=== PATIENT | male | born 1990 | race Caucasian/White ===

== ENCOUNTER 2021-03-13 18:25 | Inpatient (IN) | payer SELFPAY ==
--- NOTE | 2021-03-13 18:26 | ECG_ITS ---
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 Measurements Intervals Eustace Rate: 98 P: 67 NE: 144 QRS: 54 QRSD: 118 T: 59 QT: 370 QTc: 474 Interpretive Statements SINUS RHYTHM POSSIBLE LEFT ATRIAL ENLARGEMENT [-0.1mV P WAVE IN V1/V2] No previous ECG available for comparison Electronically Signed On 03-14-2021 9:21:47 CDT by Kerrie Singletary M.D. [id number]
[2021-03-13 18:40] VITALS: BP 153/115; PULSE 107; RESP 16; TEMP 36.6; O2SAT 99; BMI 24.3
[2021-03-13 19:29] LABS: Add Urine Microscopic? NO; Charge for UA Resulting for Rev
[2021-03-13 19:32] LABS: Bilirubin Urine Neg (Negative); Blood Urine Neg (Negative); Glucose Urine UA Norm (Normal); Ketones Urine Negative (Negative); Leukocyte Esterase Urine Negative (Negative); Nitrate Urine Negative (Negative); Protein Urine Neg (Negative); Urine Appearance Clear (CLEAR); Urine Color Yellow (Yellow); Urobilinogen Urine Norm (Negative); pH Urine 7 (5-7)
--- NOTE | 2021-03-13 19:34 | ED_ITS ---
HPI - Alcohol General: Chief Complaint: Alcohol Stated Complaint: ETOH Time Seen by Provider: 03/13/21 18:26 History of Present Illness: HPI narrative: The patient is a 30-year-old male alcoholic also has hepatitis C. He says he wants to be admitted for help with his alcoholism. He says he is chronically depressed and feels like he would be better off if he did not wake up. He says he is behaviors have stressed out his family and he is a bad son, bad has been and he is sick and tired of it. He wants help. He denies direct suicidal ideations but mentions multiple times that he wishes he would . MD complaint: alcohol intoxication Chronic alcohol use: Yes Recent trauma: No Associated symptoms: Reports no associated symptoms and depression; Deny abdominal pain Review of Systems General: Reports: 10 or more systems reviewed and unremarkable except in HPI and below Const: Denies: fatigue Eyes: Denies: change in vision, blurry vision or eye redness ENMT: Denies: throat pain, swelling of lips/tongue, ear or mastoid pain or nasal congestion Card: Denies: chest pain, palpitations, irregular heart rhythm, edema, dyspnea on exertion or orthopnea Resp: Denies: dyspnea, productive cough or non-productive cough GI: Denies: abdominal pain, diarrhea or GI cramping : Denies: flank pain, urinary frequency or urinary urgency Musc: Denies: neck pain, back pain, extremity pain, joint pain, joint redness, limited range of motion or muscle weakness Skin/Breast: Denies: rash, pruritus, erythema, skin pain or skin tenderness Neuro: Denies: headache(s), numbness in extremities, weakness in extremities, sensory changes, difficulty walking, dizziness, confusion or Slurred speech present Psych: Reports: depression and hopelessness; Denies: anxiety Endo: Denies: polyuria All/Imm: Denies: urticaria, throat swelling or tongue swelling PFSH ED PFSH: Social History (Updated 03/13/21 @ 18:47 by Yeison Asif RN) Smoking and tobacco status: heavy tobacco smoker cigarettes Packs smoked per day: 2 Alcohol intake: current Alcohol intake frequency: 3 or more drinks per day Alcohol type: hard liquor Substance/Drug Use: current Substance/Drug use frequency: daily Substance/Drug use type: Marijuana Physical Exam Const: COMMON NORMALS: no acute distress, average body habitus, patient oriented x3, no limitations, healthy appearing, alert and well nourished GENERAL APPEARANCE: cooperative, comfortable and disheveled ORIENTATION/CONSCIOUSNESS: Yes awake, Yes oriented to person, Yes oriented to place and Yes oriented to time OTHER: intoxicated HENMT: COMMON NORMALS: normocephalic, external ears normal and Normal external nose present HEAD & SCALP: normal to inspection and normocephalic NOSE: Normal external nose present EXTERNAL EAR: Yes external ears normal MOUTH: Normal oral and palatal mucosa present THROAT: posterior oropharynx normal Eye: COMMON NORMALS: Equal, round and reactive pupils present and EOMs intact bilaterally GENERAL EYE: appearance normal, both eyes and all related structures PUPIL: Yes Equal, round and reactive pupils present Neck/C-Spine: COMMON NORMALS: full ROM, no lymphadenopathy, no meningeal signs and no JVD GENERAL: Yes normal visual inspection Lymph: LYMPHATIC: no lymphadenopathy noted Chest: COMMONS NORMALS: normal inspection of the chest and normal palpation of entire chest wall Resp: COMMON NORMALS: normal respiratory effort, No retractions, No use of accessory muscles, clear to auscultation bilaterally and percussion normal EFFORT & INSPECTION: Yes able to speak in complete sentences AUSCULTATION: clear to auscultation bilaterally PERCUSSION: percussion normal Cardio: COMMON NORMALS: no JVD, regular rate, regular rhythm, S1 normal heart sound present, S2 normal heart sound present and Peripheral pulses 2+ throughout RATE: regular rate RHYTHM: regular rhythm HEART SOUNDS: S1 normal heart sound present and S2 normal heart sound present PERIPHERAL PULSES: Peripheral pulses 2+ throughout GI: COMMON NORMALS: Normal to inspection, nondistended, normoactive bowel sounds present, Soft to palpation, non-tender and no masses INSPECTION: Yes normal to inspection PALPATION: Yes Soft to palpation : COMMON NORMALS: Yes no CVA tenderness BLADDER/KIDNEY EXAM: Yes no CVA tenderness Back/Pelvis: COMMON NORMALS: no CVA tenderness, thoracic and lumbar spine normal to inspection, no thoracic nor lumbar tenderness and thoraco-lumbar ROM normal Extremity: COMMON NORMALS: normal to inspection, full ROM, capillary refill normal, no joint enlargement and no pedal edema GENERAL: Yes normal exam except as noted Neuro: COMMON NORMALS: patient oriented x3, CN's II-XII intact bilaterally, moves all extremities, no focal motor deficits, no sensory deficits noted and gait normal SENSORIUM/ORIENTATION: Yes alert, Yes oriented to person, Yes oriented to place and Yes oriented to time MENINGEAL SIGNS: Yes no meningeal signs Psych: COMMON NORMALS: cooperative, normal affect and speech normal APPEARANCE: Yes unkempt ATTITUDE: Yes calm SPEECH: Yes normal speech MOOD & AFFECT: Yes depressed mood Skin: COMMON NORMALS: no rashes or lesions noted GENERAL SKIN EXAM: no rashes or lesions noted Course Vital Signs: Vital signs: Vital Signs Temperature 98.7 F 03/13/21 22:45 Pulse Rate 108 H 03/13/21 22:45 Respiratory Rate 16 03/13/21 18:40 Blood Pressure 161/106 03/13/21 22:45 Pulse Oximetry 93 03/13/21 22:45 MDM - Alcohol MDM Narrative: Medical decision making narrative: I have written 96-hour hold paperwork as the patient expresses passive suicidal ideations and he is intoxicated. He says multiple times he wishes he would and not wake up and if he were drowning in a bathtub he would not save himself. He is also highly intoxicated. Discussed with Dr. Unger who accepts pending his alcohol less than 200. Lab Data: Labs: Lab Results 03/13/21 03/13/21 03/13/21 Range/Units 19:20 19:20 19:20 WBC 6.0 (4.0-10.0) 10^3/ uL RBC 4.85 (4.1-5.3) 10^6/u L Hgb 16.6 (11.7-16.6) g/dL Hct 47.0 (42.0-52.0) % MCV 96.9 H (80-94) fL MCH 34.2 H (28.0-34.0) pg MCHC 35.3 (30.0-36.0) g/dL RDW 12.9 (12.1-15.1) % Plt Count 225 (130-400) 10^3/c mm MPV 9.5 (7.4-10.4) fL Neut % (Auto) 60.7 % Lymph % (Auto) 24.5 % Robeson % (Auto) 12.0 % Eos % (Auto) 1.3 % Baso % (Auto) 1.2 % Neut # (Auto) 3.63 (1.8-7.7) 10^3/u L Lymph # (Auto) 1.5 (0.8-4.8) 10^3/u L Robeson # (Auto) 0.7 (0.2-0.9) 10^3/u L Eos # (Auto) 0.1 (0.0-0.8) 10^3/u L Baso # (Auto) 0.1 (0.0-0.1) 10^3/u L Nucleated RBC % (a uto) 0 % Nucleated RBCs # 0.0 /100WBC Sodium 139 (136-145) mmol/L Potassium 3.2 L (3.5-5.1) mmol/L Chloride 99 (98-107) mmol/L Carbon Dioxide 26 (22-29) mmol/L Anion Gap 17.2 (5-19) BUN 5 L (6-20) mg/dL Creatinine 0.7 (0.7-1.2) mg/dL GFR Calculation 130.7 H (90-130) mL/min Glucose 123 H (65-115) mg/dL Calculated Osmolal ity 287 (285-295) mOsm/k g Calcium 8.2 L (8.5-10.5) mg/dL Total Bilirubin 0.3 (0.15-1.2) mg/dL AST 263 H (0-40) U/L ALT 306 H (0-41) U/L Alkaline Phosphata se 106 (40-130) IU/L Total Protein 7.4 (6.6-8.7) g/dL Albumin 4.6 (3.5-5.2) g/dL Globulin 2.8 (1.3-4.6) g/dL TSH 2.71 (0.27-4.20) uIU/ mL Urine Color Yellow (Yellow) Urine Appearance Clear (CLEAR) Urine pH 7 (5-7) Ur Specific Gravit y 1.000 L (1.005-1.030) Urine Protein Neg (Negative) Urine Glucose (UA) Norm (Normal) Urine Ketones Negative (Negative) Urine Blood Neg (Negative) Urine Nitrate Negative (Negative) Urine Bilirubin Neg (Negative) Urine Urobilinogen Norm (Negative) mg/dL Ur Leukocyte Sherri ase Negative (Negative) Salicylates < 0.3 L (3-10) mg/dL Urine Opiates Scre en (Negative) ng/mL Acetaminophen < 5.0 L (10-30) ug/mL Ur Barbiturates Sc reen (Negative) ng/mL Ur Phencyclidine S crn (Negative) ng/mL Ur Amphetamines Sc reen (Negative) ng/mL U Benzodiazepines Scrn (Negative) ng/mL Urine Cocaine Scre en (Negative) ng/mL U Marijuana (THC) Screen (Negative) ng/mL Ethyl Alcohol 387 H* (0-10) mg/dL 03/13/21 03/13/21 Range/Units 19:20 23:34 WBC (4.0-10.0) 10^3/ uL RBC (4.1-5.3) 10^6/u L Hgb (11.7-16.6) g/dL Hct (42.0-52.0) % MCV (80-94) fL MCH (28.0-34.0) pg MCHC (30.0-36.0) g/dL RDW (12.1-15.1) % Plt Count (130-400) 10^3/c mm MPV (7.4-10.4) fL Neut % (Auto) % Lymph % (Auto) % Robeson % (Auto) % Eos % (Auto) % Baso % (Auto) % Neut # (Auto) (1.8-7.7) 10^3/u L Lymph # (Auto) (0.8-4.8) 10^3/u L Robeson # (Auto) (0.2-0.9) 10^3/u L Eos # (Auto) (0.0-0.8) 10^3/u L Baso # (Auto) (0.0-0.1) 10^3/u L Nucleated RBC % (a uto) % Nucleated RBCs # /100WBC Sodium (136-145) mmol/L Potassium (3.5-5.1) mmol/L Chloride (98-107) mmol/L Carbon Dioxide (22-29) mmol/L Anion Gap (5-19) BUN (6-20) mg/dL Creatinine (0.7-1.2) mg/dL GFR Calculation (90-130) mL/min Glucose (65-115) mg/dL Calculated Osmolal ity (285-295) mOsm/k g Calcium (8.5-10.5) mg/dL Total Bilirubin (0.15-1.2) mg/dL AST (0-40) U/L ALT (0-41) U/L Alkaline Phosphata se (40-130) IU/L Total Protein (6.6-8.7) g/dL Albumin (3.5-5.2) g/dL Globulin (1.3-4.6) g/dL TSH (0.27-4.20) uIU/ mL Urine Color (Yellow) Urine Appearance (CLEAR) Urine pH (5-7) Ur Specific Gravit y (1.005-1.030) Urine Protein (Negative) Urine Glucose (UA) (Normal) Urine Ketones (Negative) Urine Blood (Negative) Urine Nitrate (Negative) Urine Bilirubin (Negative) Urine Urobilinogen (Negative) mg/dL Ur Leukocyte Sherri ase (Negative) Salicylates (3-10) mg/dL Urine Opiates Scre en Negative (Negative) ng/mL Acetaminophen (10-30) ug/mL Ur Barbiturates Sc reen Negative (Negative) ng/mL Ur Phencyclidine S crn Negative (Negative) ng/mL Ur Amphetamines Sc reen Negative (Negative) ng/mL U Benzodiazepines Scrn Negative (Negative) ng/mL Urine Cocaine Scre en Negative (Negative) ng/mL U Marijuana (THC) Screen Negative (Negative) ng/mL Ethyl Alcohol 268 H (0-10) mg/dL Discharge Plan Discharge Patient Disposition: Admitted As Inpatient Clinical Impression: Major depression, Alcoholic intoxication Condition: Stable Coding Level of Care Code ED [employer] Space Salesperson for Edvin Fwd Exam Comprehensive
[2021-03-13 19:41] LABS: Basophils # 0.1 10^3/uL (0.0-0.1); Basophils % 1.2 %; Eosinophils # 0.1 10^3/uL (0.0-0.8); Eosinophils % 1.3 %; Hemoglobin 16.6 g/dL (11.7-16.6); Lymphocytes # 1.5 10^3/uL (0.8-4.8); Lymphocytes % 24.5 %; Mean Corpuscular HGB Conc 35.3 g/dL (30.0-36.0); Mean Corpuscular Hemoglobin 34.2 pg (28.0-34.0); Mean Corpuscular Volume 96.9 fL (80-94); Mean Platelet Volume 9.5 fL (7.4-10.4); Monocytes # 0.7 10^3/uL (0.2-0.9); Neutrophils # 3.63 10^3/uL (1.8-7.7); Neutrophils % 60.7 %; Nucleated Red Blood Cells % 0 %; Platelet Count 225 10^3/cmm (130-400); Red Blood Count 4.85 10^6/uL (4.1-5.3); Red Cell Distribution Width 12.9 % (12.1-15.1)
[2021-03-13 19:45] LABS: Amphetamines Screen Urine Negative (Negative); Barbiturates Screen Urine Negative (Negative); Benzodiazepines Screen Urine Negative (Negative); Cocaine Screen Urine Negative (Negative); Opiate Screen Urine Negative (Negative); PCP Screen Urine Negative (Negative); THC Screen Urine Negative (Negative)
[2021-03-13] MEDS: nicotine 21 mg Patch 1 PATCH TRANSDERMA (19:58)
[2021-03-13 20:00] LABS: Acetaminophen < 5.0 ug/mL (10-30); Alanine Aminotransferase 306 U/L (0-41); Albumin Level 4.6 g/dL (3.5-5.2); Alkaline Phosphatase 106 IU/L (40-130); Anion Gap 17.2 (5-19); Aspartate Amino Transferase 263 U/L (0-40); Blood Urea Nitrogen 5 mg/dL (6-20); Calcium 8.2 mg/dL (8.5-10.5); Carbon Dioxide 26 mmol/L (22-29); Chloride 99 mmol/L (98-107); Globulin 2.8 g/dL (1.3-4.6); Glomerular Filtration Rate 130.7 mL/min (90-130); Glucose 123 mg/dL (65-115); Osmolality Calculated 287 mOsm/kg (285-295); Potassium 3.2 mmol/L (3.5-5.1); Salicylate < 0.3 mg/dL (3-10); Sodium 139 mmol/L (136-145); Thyroid Stimulating Hormone 2.71 uIU/mL (0.27-4.20); Total Bilirubin 0.3 mg/dL (0.15-1.2); Total Protein 7.4 g/dL (6.6-8.7)
[2021-03-13 20:01] LABS: Alcohol Level 387 mg/dL (0-10)
[2021-03-13 22:45] VITALS: BP 161/106; PULSE 108; TEMP 37.1; O2SAT 93
[2021-03-13] MEDS: nicotine 2 mg Gum BUCCAL (23:46)
[2021-03-13 23:53] LABS: Alcohol Level 268 mg/dL (0-10)
[2021-03-13] MEDS: potassium chloride ER 20 mEq Tablet 40 MEQ PO (23:54)
[2021-03-14] VITALS (8 sets, daily range): BP systolic 136–163; BP diastolic 94–114; PULSE 93–105; RESP 14–18; TEMP 36.8–37.1; O2SAT 95–98
[2021-03-14 02:55] LABS: Alcohol Level 186 mg/dL (0-10)
[2021-03-14] MEDS: multivitamin therapeutic Tablet 1 TAB PO (08:56)
[2021-03-14] MEDS: thiamine 100 mg Tablet PO (08:56)
[2021-03-14] MEDS: ondansetron 4 MG Tablet PO (08:56)
[2021-03-14] MEDS: folic acid 1 mg Tablet PO (08:56)
--- NOTE | 2021-03-14 09:18 | PC.NURSE ---
Addendum entered by Isabelle Gary RN 03/14/21 10:12: PRN FOLLOW UP PT RESTING IN BED AT THIS TIME. NO FURTHER C/O NAUSEA. Addendum entered by Isabelle Gary RN 03/14/21 09:21: LATE ENTRY FOR 0856 Original Note: PRN ZOFRAN PRN ZOFRAN 4 MG GIVEN PO FOR PT C/O NAUSEA. PT REPORTS NO VOMITING AT THIS TIME. WILL CONTINUE TO MONITOR FOR MEDICATION EFFECTIVENESS.
[2021-03-14] MEDS: nicotine 21 mg Patch 1 PATCH TRANSDERMA (12:30)
--- NOTE | 2021-03-14 12:34 | P.HP_ITS ---
Providers/Chief Complaint Admitting Physician: Maribel Unger DO Chief Complaint: PSYCH EVAL HPI NPU History of Present Illness Cecil Nelson is a 30 year old male with longstanding history of alcohol depende nce previously presenting to the emergency department a month ago but leaving AGAINST MEDICAL ADVICE under similar circumstances with alcohol intoxication requesting medically managed withdrawal currently presenting with passive suicidal ideation in the context of alcohol intoxication. Patient states that he is frustrated with his ongoing alcohol use and reports using around a pint to a couple pints of liquor daily presenting to the emergency department with a blood alcohol level of 286 mg/dL. Patient states that he has had worsening thoughts about not wanting to live secondary to his alcohol use but denies any past history of depression or suicide attempt or self-harm behavior. Patient currently reporting alcohol withdrawal symptoms to include nausea, stomach cramping, sweats, difficulty sleeping. Patient reports having problems with craving alcohol and states that he had detoxed himself a couple weeks ago and was sober for a few days but began to drink again. Patient states that his alcohol use is cause significant impairment in his ability to work. Review of Systems General: Reports: 10 or more systems reviewed and unremarkable except in HPI and below Meds NPU Home Medications Medication Instructions Recorded Confirmed Last Taken Type No Known Home Medications 03/13/21 03/13/21 Unknown History Allergies Allergy/AdvReac Type Severity Reaction Status Date / Time No Known Allergies Allergy Verified 01/31/21 14:01 PFS NPU PFSH: Social History Smoking and tobacco status: heavy tobacco smoker cigarettes Packs smoked per day: 2 Alcohol intake: current Alcohol intake frequency: 3 or more drinks per day Alcohol type: hard liquor Substance/Drug Use: current Substance/Drug use frequency: daily Substance/Drug use type: Marijuana Other Psychiatric History: Other Psychiatric History: Denies any past psychiatric history Denies any history of psychiatric hospitalization Denies any history of suicide attempt or self-harm behavior Mental Status Exam MSE Comments: Disheveled, unshaven, tired appearing, shaking, fair eye contact Psychomotor activity is restless, no agitation Speech is low volume, normal rate, clear articulation, not pressured I feel bad, congruent affect, not labile Alert, oriented to person, place, time, situation Memory and concentration appear to be intact per interview Intellectual functioning appears to be average based on vocabulary, interview Thought process, linear but brief, no flight of ideas Thought content, no delusions, no hallucinations, no suicidal or homicidal ideation Insight and judgment appear to be fair Vitals/I&O/Wt Last Vital Signs Temp 98.7 F 03/14/21 06:00 Pulse 105 H 03/14/21 06:00 Resp 18 03/14/21 06:00 BP 151/107 03/14/21 06:00 Pulse Ox 95 03/14/21 06:00 Weight last 48 hrs Weight 77.111 kg Data NPU : 03/13/21 19:20 03/13/21 19:20 A&P Assessment and plan (1) Alcohol dependence with withdrawal: Status: Acute Qualifiers: Complication of substance-induced condition: uncomplicated Qualified Code(s): F10.230 - Alcohol dependence with withdrawal, uncomplicated (2) Depressive disorder: Status: Acute Additional A&P Information 30-year-old male with no past psychiatric history with longstanding history of alcohol dependence reports worsening depressive symptoms and passive suicidal ideation in the context of inability to stop drinking, requesting medically managed with withdrawal as well as assistance with coordinating for post discharge substance rehabilitation. INVOLUNTARY ADMIT to inpatient psychiatry [facility] protocol Discussed recommendation to abstain from the use of alcohol and substances Coordinate with social media marketing analyst for post discharge substance counseling/treatment Involuntary Hold Information 96 Hour Hold: 96 Hour Involuntary Admission: Yes 96 Hour Hold Ending Date: 02/15/21 96 Hour Hold Ending Time: 20:14 Attestations NPU Medical Necessity Statement*: Psychiatric hospitalization indicated for medically managed withdrawal, coordination for safe discharge Anticipate hospital stay to exceed 2 midnights Time Spent in Patient Care: Greater than 35 minutes (>than 50% of time spent in counselling and/or direct pt care on unit) . Coding Level of Care Code Acute Fine Unhairer for Edvin Garcia Diagnoses Alcohol dependence with withdrawal F10.230 Complication of substance-induced condition: uncomplicated Depressive disorder F32.9
--- NOTE | 2021-03-14 20:00 | PC.NURSE ---
ciwa 7/BP CONCERN BP IS 159/114, WITHDRAWL SYMPTOMS ARE BEGINNING AND CIWA IS A 7 AT THIS TIME, NOTIFIED PHYSICIAN OF PT CONDITION.
--- NOTE | 2021-03-14 20:43 | PC.NURSE ---
PM Assessment CIWA 7, BP increased to 159/114, HR 104, Pt is mildly diaphoretic, anxious, pacing, mildly sensitive to sound/light, Denies SI/HI, Denies AH/VH, confirms constant state of depression, headache Pain rated 4 on 1-10 scale, med nurse notified. Contacted Physician, orders for clonidine 0.1mg PO once one received, and additional 2mg PO Ativan for s/s of withdrawl received. Orders placed, med nurse notified of new meds to administer. Will continue to observe.
[2021-03-14] MEDS: cloNIDine 0.1 mg Tablet PO (21:02)
[2021-03-14] MEDS: LORazepam 2 mg Tablet PO (21:02)
--- NOTE | 2021-03-14 21:45 | PC.NURSE ---
CIWA 2 Ciwa score decreased. Symptoms of alcohol withdraw is improved. BP is 136/94, RR 17, MD 94. No pain, no tremor noted, pt resting in his bed reading a book, calm, cooperative. Will continue to observe
--- NOTE | 2021-03-15 01:11 | PC.NURSE ---
AT 2101, PT GIVEN CLONODINE 1MG PO FOR BP OF 159/114 AND ATIVAN FOR ALC WITHDRAWEL S/S. RECHECK AT 2144...136/94.
[2021-03-15 06:00] VITALS: BP 154/92; PULSE 93; RESP 18; TEMP 37; O2SAT 95
[2021-03-15 08:38] VITALS: BP 154/92
[2021-03-15] MEDS: multivitamin therapeutic Tablet 1 TAB PO (08:38)
[2021-03-15] MEDS: cloNIDine 0.1 mg Tablet PO ×3 (08:38→20:19)
[2021-03-15] MEDS: thiamine 100 mg Tablet PO (08:38)
[2021-03-15] MEDS: folic acid 1 mg Tablet PO (08:39)
--- NOTE | 2021-03-15 13:33 | PM.NPN ---
Subjective NPU Subjective: Interval history: Continues to report feeling fatigued but denies any interval withdrawal symptoms Reports occasional mood symptoms related to ongoing stressors, denies any interval suicidal ideation Reports improving appetite and sleep Mental Status Exam MSE Comments: Sitting up in bed, appropriately groomed and dressed, calm, cooperative, interactive, good eye contact Psychomotor activity is neither increased or decreased, no agitation Speech is normal volume, normal rate, clear articulation, not pressured I feel better, congruent affect, not labile Alert, oriented to person, place, time, situation Memory and concentration appear to be intact per interview Intellectual functioning appears to be average based on vocabulary, interview Thought process, linear, no flight of ideas Thought content, no delusions, no hallucinations, no suicidal or homicidal ideation Insight and judgment appear to be fair Vitals/I&O/Wt Last Vital Signs Temp 98.6 F 03/15/21 06:00 Pulse 93 03/15/21 06:00 Resp 18 03/15/21 06:00 BP 154/92 03/15/21 08:38 Pulse Ox 95 03/15/21 06:00 Weight last 48 hrs Weight 77.111 kg Data NPU : 03/13/21 19:20 03/13/21 19:20 A&P Assessment and plan (1) Alcohol dependence with withdrawal: Status: Acute Qualifiers: Complication of substance-induced condition: uncomplicated Qualified Code(s): F10.230 - Alcohol dependence with withdrawal, uncomplicated (2) Depressive disorder: Status: Acute Additional A&P Information Reports improvement in withdrawal symptoms, continues to report some depressive symptoms related ongoing life stress, communicates interest in starting medication to target alcohol craving START naltrexone 50 mg daily START citalopram 10 mg daily targeting mood symptoms Involuntary Hold Information 96 Hour Hold: 96 Hour Involuntary Admission: Yes 96 Hour Hold Ending Date: 02/15/21 96 Hour Hold Ending Time: 20:14 Attestations NPU Medical Necessity Statement*: Continues to require psychiatric hospitalization for medical management of withdrawal, coordination for safe discharge Coding Level of Care Code Acute Certified Pediatric Nurse Practitioner for Edvin Garcia Diagnoses Alcohol dependence with withdrawal F10.230 Complication of substance-induced condition: uncomplicated Depressive disorder F32.9
[2021-03-15 14:00] VITALS: BP 137/105; PULSE 104; RESP 20; TEMP 36.6; O2SAT 97
[2021-03-15] MEDS: nicotine 21 mg Patch 1 PATCH TRANSDERMA (14:05)
[2021-03-15] MEDS: naltrexone hcl 50 mg Tablet PO (14:05)
[2021-03-15] MEDS: citalopram 20 mg Tablet 10 MG PO (14:05)
--- NOTE | 2021-03-15 18:47 | PC.RESP ---
Smoking Cessation information sent to patient.
[2021-03-15 20:19] VITALS: BP 142/99
[2021-03-15] MEDS: blistex lip oint 7 gm Tube 1 APPLIC TOPICAL (20:50)
[2021-03-15] MEDS: acetaminophen 325 mg Tablet 650 MG PO (21:02)
[2021-03-15] MEDS: LORazepam 2 mg Tablet PO (21:02)
[2021-03-15] MEDS: hyDROXYzine 25 mg Capsule 50 MG PO (21:02)
[2021-03-15 21:27] VITALS: BP 142/99; PULSE 104; RESP 16; TEMP 36.7
--- NOTE | 2021-03-15 22:57 | PC.NURSE ---
In bed sleeping.
[2021-03-16 06:00] VITALS: BP 142/98; PULSE 92; RESP 16; TEMP 36.8; O2SAT 96
[2021-03-16] MEDS: multivitamin therapeutic Tablet 1 TAB PO (08:16)
[2021-03-16] MEDS: citalopram 20 mg Tablet 10 MG PO (08:16)
[2021-03-16] MEDS: folic acid 1 mg Tablet PO (08:17)
[2021-03-16] MEDS: naltrexone hcl 50 mg Tablet PO (08:17)
[2021-03-16] MEDS: thiamine 100 mg Tablet PO (08:17)
[2021-03-16 08:18] VITALS: BP 142/98
[2021-03-16] MEDS: cloNIDine 0.1 mg Tablet PO (08:18)
[2021-03-16 09:32] VITALS: BP 142/98
--- NOTE | 2021-03-16 09:39 | P.DS_ITS ---
Diagnoses at Discharge Discharge Diagnosis (1) Alcohol dependence with withdrawal: Status: Acute Qualifiers: Complication of substance-induced condition: uncomplicated Qualified Code(s): F10.230 - Alcohol dependence with withdrawal, uncomplicated (2) Depressive disorder: Status: Acute Reason for Visit Reason for Visit: [facility] Hospital Course Hospital Course 30 year old male with longstanding history of alcohol dependence previously presenting to the emergency department a month ago but leaving AGAINST MEDICAL ADVICE under similar circumstances with alcohol intoxication requesting medically managed withdrawal currently presenting with passive suicidal ideation in the context of alcohol intoxication. Patient was started on CIWA protocol at the time of admission and tolerated withdrawal well with eventual improved sleep and appetite. Patient denied any subsequent suicidal ideation throughout his hospital stay and communicated his interest in outpatient substance rehabilitation at the time of discharge. Patient was started on citalopram 10 mg daily targeting reported depressive symptoms although patient will continue to need monitoring outpatient to further evaluate underlying mood symptoms versus alcohol induced mood symptoms. Patient was also started on naltrexone 50 mg daily targeting cravings which the patient tolerated well with no reports of any medication side effects. Patient was not suicidal at the time of discharge and did not appear to pose an imminent threat of harm to self or others. Low to moderate risk of harm to self given no current suicidal ideation and no report of any psychiatric symptoms although patient's risk may be elevated if he relapses and continues to drink alcohol or is noncompliant with post discharge substance counseling/treatment leading to unexpected, impulsive behavior. Risk mitigation included psychiatric hospitalization for medically managed withdrawal, medication stabilization, recommendation to abstain from the use of alcohol and substances as well as the need for compliance with his medication, medication management and substance counseling/treatment. Patient was able to communicate his understanding of the need to abstain from use of alcohol and substances as well as the need for compliance with his medication, medication management and substance counseling/treatment in order to further mitigate his risk of harm to self and others. Involuntary Hold Information 96 Hour Hold: 96 Hour Involuntary Admission: Yes 96 Hour Hold Ending Date: 02/15/21 96 Hour Hold Ending Time: 20:14 Mental Status Exam MSE Comments: Appropriately appropriately groomed and dressed, sitting up on his bed, calm, cooperative, interactive, good eye contact Psychomotor activity is neither increased or decreased, no agitation Speech is normal volume, normal rate, clear articulation, not pressured I feel good, congruent affect, not labile Alert, oriented to person, place, time, situation Memory and concentration appear to be intact per interview Thought process, linear, no flight of ideas Thought content, no delusions, no hallucinations, no suicidal or homicidal ideation Insight and judgment appear to be fair Discharge Data Vitals: Last Vital Signs Temp 98.2 F 03/16/21 06:00 Pulse 92 03/16/21 06:00 Resp 16 03/16/21 06:00 BP 142/98 03/16/21 09:32 Pulse Ox 96 03/16/21 06:00 Discharge Plan Discharge Patient Disposition: Home Condition: Stable Prescriptions: New naltrexone 50 mg Tablet 50 mg PO DAILY Qty: 30 RF: 0 citalopram 20 mg Tablet 10 mg PO DAILY Qty: 30 RF: 0 Vitamin B-1 (mononitrate) 100 mg Tablet 100 mg PO DAILY Qty: 30 RF: 0 Thera 400 mcg Tablet 1 tab PO DAILY Qty: 30 RF: 0 Discharge Orders: Discharge Order (Routine); Ordered 03/16/21 Ordered By: Maribel Unger Referrals: [facility] [Outside] (Hours: Walk-in between 7:30am and 3pm. No appointment needed and just walk in and say I need to do an assessment for services. The commercial front load operator will set you up with an retirement plan specialist, sometimes right away and usually same day. ) [facility] [Outside] (Hours: 8AM to 5PM SUDS application was faxed to [facility]. Call them if you don't get a call within 48 hours. ) Discharge Diet: Regular Discharge Activity: Resume usual activity Patient Instructions: Thiamine (Vitamin B-1) (By mouth), Naltrexone (By mouth), Citalopram (By mouth), Anxiety (DC), Opioid Safety Discharge Attestations NPU Time Spent in Discharge Care*: greater than 30 min Status at Discharge: Cognitive status at discharge: cognitively intact , Behavioral status at discharge: cooperative , Functional status at discharge: independent ambulation Overall status at discharge: patient is back to baseline Coding Level of Care Code Acute Chg FW DC note Diagnoses Alcohol dependence with withdrawal F10.230 Complication of substance-induced condition: uncomplicated Depressive disorder F32.9
== END 2021-03-16 10:05 | disposition home or self-care (01) | DRG 897 ==
LOC: ER 03-14 00:16 → NP 03-14 00:32
PROVIDERS: Emergency Medicine; Admitting Provider Psychiatry & Neurology Psychiatry; Emergency Provider Family Medicine; Visit Provider Psychiatry & Neurology Psychiatry
DX: F10.229 Alcohol dependence with intoxication, unspecified (principal); R45.851 Suicidal ideations; F10.239 Alcohol dependence with withdrawal, unspecified; Y90.8 Blood alcohol level of 240 mg/100 ml or more; F32.9 Major depressive disorder, single episode, unspecified
CPT/HCPCS: 36415; 80053; 80306; 80307; 81003; 84443; 85025; 93005; 99285; Q0162

== ENCOUNTER 2021-04-10 17:00 | Emergency (ER) | payer SELFPAY ==
[2021-04-10 17:05] VITALS: BP 116/76; PULSE 136; RESP 18; TEMP 37.1; O2SAT 97; BMI 25.8
--- NOTE | 2021-04-10 17:26 | PC.PHAR ---
PT STATES HE TAKES CARE OF HIS OWN MEDICATIONS-PT HAD RX WRITTEN ON 03/16/21 FOR NALTREXONE 50MG DAILY THERA 1 TAB DAILY AND VITAMIN B-1 100MG DAILY PT STATES HE NEVER GOT ANY OF THOSE MEDICATIONS-EXT MED HISTORY SHOWS CELEXA 10MG DAILY FILLED 03/17/21 30D/S PT STATES HE HAS BEEN OUT OF THIS MEDICATION FOR A WEEK
[2021-04-10] MEDS: sodium chloride 0.9% 1,000 ML 999 ML IV ×3 (17:27→19:37)
[2021-04-10] MEDS: ondansetron 2 mg/ML SDV 2 mL 4 MG IVP (17:27)
[2021-04-10 17:39] VITALS: BP 119/76; PULSE 134; RESP 31; O2SAT 96
[2021-04-10 17:41] LABS: Add Urine Microscopic? YES; Bilirubin Urine 2+ (Negative); Blood Urine 2+ (Negative); Glucose Urine UA Norm (Normal); Ketones Urine Negative (Negative); Leukocyte Esterase Urine Negative (Negative); Nitrate Urine Negative (Negative); Protein Urine 1+ (Negative); Specific Gravity, Urine 1.025 (1.005-1.030); Urine Appearance SL Hazy (CLEAR); Urine Color Dark Yellow (Yellow); Urobilinogen Urine 4 mg/dL (Negative); pH Urine 5 (5-7)
[2021-04-10 17:41] LABS: Basophils # 0.1 10^3/uL (0.0-0.1); Basophils % 0.9 %; Eosinophils # 0.2 10^3/uL (0.0-0.8); Eosinophils % 1.7 %; Hematocrit 45.6 % (42.0-52.0); Hemoglobin 15.8 g/dL (11.7-16.6); Lymphocytes # 0.2 10^3/uL (0.8-4.8); Lymphocytes % 2.1 %; Mean Corpuscular HGB Conc 34.6 g/dL (30.0-36.0); Mean Corpuscular Hemoglobin 33.8 pg (28.0-34.0); Mean Corpuscular Volume 97.6 fL (80-94); Mean Platelet Volume 11.5 fL (7.4-10.4); Monocytes # 1.1 10^3/uL (0.2-0.9); Monocytes % 10.5 %; Neutrophils % 84.4 %; Nucleated Red Blood Cells % 0 %; Platelet Count 46 10^3/cmm (130-400); Red Blood Count 4.67 10^6/uL (4.1-5.3); Red Cell Distribution Width 13.2 % (12.1-15.1); White Blood Count 10.7 10^3/uL (4.0-10.0)
--- NOTE | 2021-04-10 17:52 | W.ED.NAVMDI ---
Documented by User: Mehdi Wilson DO 04/11/21 06:01 HPI - Nausea/Vomiting/Diarrhea General: Chief complaint: Nausea/Vomiting/Diarrhea Stated complaint: N/V, cant hold anything down for 4 days Time Seen by Provider: 04/10/21 17:10 History of Present Illness: HPI Narrative: 30-year-old male presents emergency room with nausea vomiting and diarrhea severe abdominal pain and cramping. Has not been able to keep anything down for the last 4 days. Patient admits to drinking alcohol on a regular basis a pint or more of rum per day frequently more than a pint. He is awake and alert and oriented he is tachycardic with severe abdominal discomfort he did have a little bit of blood-streaked emesis this morning is the first time he has ever had that. MD elicited complaint: nausea and vomiting Pertinent past history: alcohol abuse Onset (ago): day(s) (4) Description of vomiting: watery and bilious Associated nausea: Yes Associated abdominal pain: Yes Location of pain: Diffuse Radiation: diffuse Pain consistency: intermittent Severity: severe Quality: cramping Exacerbating factors: none Relieving factors: none Associated symtoms: Reports cough, anorexia and nausea; Denies altered mental status, anxiety, bloating, change in vision, chest pain, diaphoresis, decreased urine output, dizziness, dysuria, epistaxis, fatigue, fecal incontinence, fevers/chills, headache(s), malaise, myalgias, numbness, palpitations, rash, short of breath, syncope, tenesmus, tinnitus or weakness Review of Systems Const: Denies: fatigue, malaise or diaphoresis Eyes: Denies: change in vision ENMT: Denies: tinnitus or epistaxis Card: Denies: chest pain, palpitations or syncope Resp: Denies: dyspnea, productive cough or non-productive cough GI: Reports: nausea; Denies: bloating or fecal incontinence : Denies: dysuria Skin/Breast: Denies: rash or pruritus Neuro: Denies: headache(s) or dizziness Psych: Denies: anxiety PFS ED PFSH: Medical History (Updated 04/10/21 @ 19:47 by Paulina Johnson MD) Major depression Social History Smoking and tobacco status: heavy tobacco smoker cigarettes Packs smoked per day: 2 Alcohol intake: current Alcohol intake frequency: 3 or more drinks per day Alcohol type: hard liquor Physical Exam Const: EXAM LIMITATIONS: no altered mental status Course Vital Signs: Vital signs: Vital Signs Temperature 98.7 F 04/10/21 17:05 Pulse Rate 107 H 04/10/21 21:53 Respiratory Rate 22 H 04/10/21 20:14 Blood Pressure 135/81 04/10/21 21:53 Pulse Oximetry 97 04/10/21 21:53 MDM - Nausea/Vomiting/Diarrhea MDM Narrative: Medical decision making narrative: Patient seen initially and labs ordered. Exam done. [facility] protocol initiated. Care turned over to Dr. Johnson at change of shift. Lab Data: Labs: Lab Results 04/10/21 04/10/21 04/10/21 Range/Units 17:26 17:35 17:35 WBC 10.7 H (4.0-10.0) 10^3/ uL RBC 4.67 (4.1-5.3) 10^6/u L Hgb 15.8 (11.7-16.6) g/dL Hct 45.6 (42.0-52.0) % MCV 97.6 H (80-94) fL MCH 33.8 (28.0-34.0) pg MCHC 34.6 (30.0-36.0) g/dL RDW 13.2 (12.1-15.1) % Plt Count 46 L (130-400) 10^3/c mm MPV 11.5 H (7.4-10.4) fL Neut % (Auto) 84.4 % Lymph % (Auto) 2.1 % [place] % (Auto) 10.5 % Eos % (Auto) 1.7 % Baso % (Auto) 0.9 % Neut # (Auto) 9.00 H (1.8-7.7) 10^3/u L Lymph # (Auto) 0.2 L (0.8-4.8) 10^3/u L [place] # (Auto) 1.1 H (0.2-0.9) 10^3/u L Eos # (Auto) 0.2 (0.0-0.8) 10^3/u L Baso # (Auto) 0.1 (0.0-0.1) 10^3/u L Nucleated RBC % (a uto) 0 % Nucleated RBCs # 0.0 /100WBC PT (12.1-14.9) SECO NDS INR (0.8-1.2) APTT (23.9-36.7) SECO NDS Sodium 126 L (136-145) mmol/L Potassium 3.7 (3.5-5.1) mmol/L Chloride 84 L (98-107) mmol/L Carbon Dioxide 24 (22-29) mmol/L Anion Gap 21.7 H (5-19) BUN 22 H (6-20) mg/dL Creatinine 0.9 (0.7-1.2) mg/dL GFR Calculation 97.8 (90-130) mL/min Glucose 84 (65-115) mg/dL Calculated Osmolal ity 265 L (285-295) mOsm/k g Lactate (0.5-2.2) mmol/L Calcium 8.9 (8.5-10.5) mg/dL Total Bilirubin 7.7 H* (0.15-1.2) mg/dL AST 9207 H (0-40) U/L ALT 3266 H (0-41) U/L Alkaline Phosphata se 191 H (40-130) IU/L Ammonia (16-60) umol/L Total Protein 6.3 L (6.6-8.7) g/dL Albumin 3.8 (3.5-5.2) g/dL Globulin 2.5 (1.3-4.6) g/dL Lipase 49 (13-60) U/L Urine Color Dark yellow (Yellow) Urine Appearance Sl hazy (CLEAR) Urine pH 5 (5-7) Ur Specific Gravit y 1.025 (1.005-1.030) Urine Protein 1+ H (Negative) Urine Glucose (UA) Norm (Normal) Urine Ketones Negative (Negative) Urine Blood 2+ H (Negative) Urine Nitrate Negative (Negative) Urine Bilirubin 2+ H (Negative) Urine Urobilinogen 4 H (Negative) mg/dL Ur Leukocyte Sherri ase Negative (Negative) Urine RBC 5-10 H (0-2) /hpf Urine WBC Rare (0-5) /hpf Ur Squamous Epith Cells None (0-5) /hpf Amorphous Sediment 1+ /hpf Urine Bacteria 1+ H (NONE) /hpf Urine Mucus 1+ /hpf Acetaminophen (10-30) ug/mL Hep Bs Antigen (Nonreactive) Hep Bs Antibody (11.5-1000) Hep B Core Total A b (Nonreactive) Hepatitis C Antibo dy (Nonreactive) 04/10/21 04/10/21 04/10/21 Range/Units 17:35 17:35 17:35 WBC (4.0-10.0) 10^3/ uL RBC (4.1-5.3) 10^6/u L Hgb (11.7-16.6) g/dL Hct (42.0-52.0) % MCV (80-94) fL MCH (28.0-34.0) pg MCHC (30.0-36.0) g/dL RDW (12.1-15.1) % Plt Count (130-400) 10^3/c mm MPV (7.4-10.4) fL Neut % (Auto) % Lymph % (Auto) % [place] % (Auto) % Eos % (Auto) % Baso % (Auto) % Neut # (Auto) (1.8-7.7) 10^3/u L Lymph # (Auto) (0.8-4.8) 10^3/u L [place] # (Auto) (0.2-0.9) 10^3/u L Eos # (Auto) (0.0-0.8) 10^3/u L Baso # (Auto) (0.0-0.1) 10^3/u L Nucleated RBC % (a uto) % Nucleated RBCs # /100WBC PT (12.1-14.9) SECO NDS INR (0.8-1.2) APTT (23.9-36.7) SECO NDS Sodium (136-145) mmol/L Potassium (3.5-5.1) mmol/L Chloride (98-107) mmol/L Carbon Dioxide (22-29) mmol/L Anion Gap (5-19) BUN (6-20) mg/dL Creatinine (0.7-1.2) mg/dL GFR Calculation (90-130) mL/min Glucose (65-115) mg/dL Calculated Osmolal ity (285-295) mOsm/k g Lactate 5.5 H* (0.5-2.2) mmol/L Calcium (8.5-10.5) mg/dL Total Bilirubin (0.15-1.2) mg/dL AST (0-40) U/L ALT (0-41) U/L Alkaline Phosphata se (40-130) IU/L Ammonia (16-60) umol/L Total Protein (6.6-8.7) g/dL Albumin (3.5-5.2) g/dL Globulin (1.3-4.6) g/dL Lipase (13-60) U/L Urine Color (Yellow) Urine Appearance (CLEAR) Urine pH (5-7) Ur Specific Gravit y (1.005-1.030) Urine Protein (Negative) Urine Glucose (UA) (Normal) Urine Ketones (Negative) Urine Blood (Negative) Urine Nitrate (Negative) Urine Bilirubin (Negative) Urine Urobilinogen (Negative) mg/dL Ur Leukocyte Sherri ase (Negative) Urine RBC (0-2) /hpf Urine WBC (0-5) /hpf Ur Squamous Epith Cells (0-5) /hpf Amorphous Sediment /hpf Urine Bacteria (NONE) /hpf Urine Mucus /hpf Acetaminophen < 5.0 L (10-30) ug/mL Hep Bs Antigen Non-reactive (Nonreactive) Hep Bs Antibody 67.0 (11.5-1000) Hep B Core Total A b Non-reactive (Nonreactive) Hepatitis C Antibo dy Reactive H (Nonreactive) 04/10/21 04/10/21 Range/Units 18:00 18:00 WBC (4.0-10.0) 10^3/ uL RBC (4.1-5.3) 10^6/u L Hgb (11.7-16.6) g/dL Hct (42.0-52.0) % MCV (80-94) fL MCH (28.0-34.0) pg MCHC (30.0-36.0) g/dL RDW (12.1-15.1) % Plt Count (130-400) 10^3/c mm MPV (7.4-10.4) fL Neut % (Auto) % Lymph % (Auto) % [place] % (Auto) % Eos % (Auto) % Baso % (Auto) % Neut # (Auto) (1.8-7.7) 10^3/u L Lymph # (Auto) (0.8-4.8) 10^3/u L [place] # (Auto) (0.2-0.9) 10^3/u L Eos # (Auto) (0.0-0.8) 10^3/u L Baso # (Auto) (0.0-0.1) 10^3/u L Nucleated RBC % (a uto) % Nucleated RBCs # /100WBC PT 32.50 H (12.1-14.9) SECO NDS INR 3.10 H (0.8-1.2) APTT 42.5 H (23.9-36.7) SECO NDS Sodium (136-145) mmol/L Potassium (3.5-5.1) mmol/L Chloride (98-107) mmol/L Carbon Dioxide (22-29) mmol/L Anion Gap (5-19) BUN (6-20) mg/dL Creatinine (0.7-1.2) mg/dL GFR Calculation (90-130) mL/min Glucose (65-115) mg/dL Calculated Osmolal ity (285-295) mOsm/k g Lactate (0.5-2.2) mmol/L Calcium (8.5-10.5) mg/dL Total Bilirubin (0.15-1.2) mg/dL AST (0-40) U/L ALT (0-41) U/L Alkaline Phosphata se (40-130) IU/L Ammonia 34 (16-60) umol/L Total Protein (6.6-8.7) g/dL Albumin (3.5-5.2) g/dL Globulin (1.3-4.6) g/dL Lipase (13-60) U/L Urine Color (Yellow) Urine Appearance (CLEAR) Urine pH (5-7) Ur Specific Gravit y (1.005-1.030) Urine Protein (Negative) Urine Glucose (UA) (Normal) Urine Ketones (Negative) Urine Blood (Negative) Urine Nitrate (Negative) Urine Bilirubin (Negative) Urine Urobilinogen (Negative) mg/dL Ur Leukocyte Sherri ase (Negative) Urine RBC (0-2) /hpf Urine WBC (0-5) /hpf Ur Squamous Epith Cells (0-5) /hpf Amorphous Sediment /hpf Urine Bacteria (NONE) /hpf Urine Mucus /hpf Acetaminophen (10-30) ug/mL Hep Bs Antigen (Nonreactive) Hep Bs Antibody (11.5-1000) Hep B Core Total A b (Nonreactive) Hepatitis C Antibo dy (Nonreactive) Discharge Plan Discharge Patient Disposition: Xfer Short-Term Hosp Clinical Impression: Acute alcoholic hepatitis Acute liver failure Qualifiers: Hepatic coma status: without hepatic coma Qualified Code(s): K72.00 - Acute and subacute hepatic failure without coma Pneumonia Qualifiers: Pneumonia type: due to unspecified organism Laterality: right Lung location: middle lobe of lung Qualified Code(s): J18.9 - Pneumonia, unspecified organism Condition: Stable Coding Level of Care Code ED [employer] Supervisor for Chg Fwd Exam Comprehensive Documented by User: Paulina Johnson MD 04/10/21 19:49 HPI - Nausea/Vomiting/Diarrhea General: Chief complaint: Nausea/Vomiting/Diarrhea Stated complaint: N/V, cant hold anything down for 4 days Time Seen by Provider: 04/10/21 17:10 PFS ED PFSH: Medical History (Updated 04/10/21 @ 19:47 by Paulina Johnson MD) Major depression Social History Smoking and tobacco status: heavy tobacco smoker cigarettes Packs smoked per day: 2 Alcohol intake: current Alcohol intake frequency: 3 or more drinks per day Alcohol type: hard liquor Physical Exam Const: COMMON NORMALS: no acute distress and patient oriented x3 GENERAL APPEARANCE: ill appearing HENMT: COMMON NORMALS: normocephalic and atraumatic HEAD & SCALP: normocephalic and atraumatic Eye: COMMON NORMALS: Equal, round and reactive pupils present and EOMs intact bilaterally PUPIL: Yes Equal, round and reactive pupils present Neck/C-Spine: COMMON NORMALS: full ROM and supple Chest: COMMONS NORMALS: normal inspection of the chest and normal palpation of entire chest wall Resp: COMMON NORMALS: normal respiratory effort, No retractions, No use of accessory muscles and clear to auscultation bilaterally AUSCULTATION: clear to auscultation bilaterally Cardio: COMMON NORMALS: regular rhythm and No murmurs present (Cardio) RATE: tachycardic RHYTHM: regular rhythm GI: COMMON NORMALS: Normal to inspection, nondistended, normoactive bowel sounds present, Soft to palpation, non-tender and no masses PALPATION: Yes Soft to palpation Extremity: COMMON NORMALS: normal to inspection and full ROM Neuro: COMMON NORMALS: patient oriented x3, moves all extremities and no focal motor deficits Psych: COMMON NORMALS: mental status grossly normal, Normal thought process present and cooperative THOUGHT PROCESS: Normal thought process present Skin: COMMON NORMALS: no rashes or lesions noted and no wounds NARRATIVE SKIN EXAM: jaundiced GENERAL SKIN EXAM: no rashes or lesions noted Course Vital Signs: Vital signs: Vital Signs Temperature 98.7 F 04/10/21 17:05 Pulse Rate 107 H 04/10/21 21:53 Respiratory Rate 22 H 04/10/21 20:14 Blood Pressure 135/81 04/10/21 21:53 Pulse Oximetry 97 04/10/21 21:53 MDM - Nausea/Vomiting/Diarrhea MDM Narrative: Medical decision making narrative: Patient presents here with nausea and vomiting found to have hepatitis likely from alcoholism along with liver failure with an elevated INR. He does have a right middle lobe pneumonia as well. Patient started on IV antibiotics given IV fluids here. I spoke to physician [facility] and will transfer there for higher level of care as patient needs GI specialty which we do not have. Patient has been stable here while in the ER. Lab Data: Labs: Lab Results 04/10/21 04/10/21 04/10/21 Range/Units 17:26 17:35 17:35 WBC 10.7 H (4.0-10.0) 10^3/ uL RBC 4.67 (4.1-5.3) 10^6/u L Hgb 15.8 (11.7-16.6) g/dL Hct 45.6 (42.0-52.0) % MCV 97.6 H (80-94) fL MCH 33.8 (28.0-34.0) pg MCHC 34.6 (30.0-36.0) g/dL RDW 13.2 (12.1-15.1) % Plt Count 46 L (130-400) 10^3/c mm MPV 11.5 H (7.4-10.4) fL Neut % (Auto) 84.4 % Lymph % (Auto) 2.1 % [place] % (Auto) 10.5 % Eos % (Auto) 1.7 % Baso % (Auto) 0.9 % Neut # (Auto) 9.00 H (1.8-7.7) 10^3/u L Lymph # (Auto) 0.2 L (0.8-4.8) 10^3/u L [place] # (Auto) 1.1 H (0.2-0.9) 10^3/u L Eos # (Auto) 0.2 (0.0-0.8) 10^3/u L Baso # (Auto) 0.1 (0.0-0.1) 10^3/u L Nucleated RBC % (a uto) 0 % Nucleated RBCs # 0.0 /100WBC PT (12.1-14.9) SECO NDS INR (0.8-1.2) APTT (23.9-36.7) SECO NDS Sodium 126 L (136-145) mmol/L Potassium 3.7 (3.5-5.1) mmol/L Chloride 84 L (98-107) mmol/L Carbon Dioxide 24 (22-29) mmol/L Anion Gap 21.7 H (5-19) BUN 22 H (6-20) mg/dL Creatinine 0.9 (0.7-1.2) mg/dL GFR Calculation 97.8 (90-130) mL/min Glucose 84 (65-115) mg/dL Calculated Osmolal ity 265 L (285-295) mOsm/k g Lactate (0.5-2.2) mmol/L Calcium 8.9 (8.5-10.5) mg/dL Total Bilirubin 7.7 H* (0.15-1.2) mg/dL AST 9207 H (0-40) U/L ALT 3266 H (0-41) U/L Alkaline Phosphata se 191 H (40-130) IU/L Ammonia (16-60) umol/L Total Protein 6.3 L (6.6-8.7) g/dL Albumin 3.8 (3.5-5.2) g/dL Globulin 2.5 (1.3-4.6) g/dL Lipase 49 (13-60) U/L Urine Color Dark yellow (Yellow) Urine Appearance Sl hazy (CLEAR) Urine pH 5 (5-7) Ur Specific Gravit y 1.025 (1.005-1.030) Urine Protein 1+ H (Negative) Urine Glucose (UA) Norm (Normal) Urine Ketones Negative (Negative) Urine Blood 2+ H (Negative) Urine Nitrate Negative (Negative) Urine Bilirubin 2+ H (Negative) Urine Urobilinogen 4 H (Negative) mg/dL Ur Leukocyte Sherri ase Negative (Negative) Urine RBC 5-10 H (0-2) /hpf Urine WBC Rare (0-5) /hpf Ur Squamous Epith Cells None (0-5) /hpf Amorphous Sediment 1+ /hpf Urine Bacteria 1+ H (NONE) /hpf Urine Mucus 1+ /hpf Acetaminophen (10-30) ug/mL Hep Bs Antigen (Nonreactive) Hep Bs Antibody (11.5-1000) Hep B Core Total A b (Nonreactive) Hepatitis C Antibo dy (Nonreactive) 04/10/21 04/10/21 04/10/21 Range/Units 17:35 17:35 17:35 WBC (4.0-10.0) 10^3/ uL RBC (4.1-5.3) 10^6/u L Hgb (11.7-16.6) g/dL Hct (42.0-52.0) % MCV (80-94) fL MCH (28.0-34.0) pg MCHC (30.0-36.0) g/dL RDW (12.1-15.1) % Plt Count (130-400) 10^3/c mm MPV (7.4-10.4) fL Neut % (Auto) % Lymph % (Auto) % [place] % (Auto) % Eos % (Auto) % Baso % (Auto) % Neut # (Auto) (1.8-7.7) 10^3/u L Lymph # (Auto) (0.8-4.8) 10^3/u L [place] # (Auto) (0.2-0.9) 10^3/u L Eos # (Auto) (0.0-0.8) 10^3/u L Baso # (Auto) (0.0-0.1) 10^3/u L Nucleated RBC % (a uto) % Nucleated RBCs # /100WBC PT (12.1-14.9) SECO NDS INR (0.8-1.2) APTT (23.9-36.7) SECO NDS Sodium (136-145) mmol/L Potassium (3.5-5.1) mmol/L Chloride (98-107) mmol/L Carbon Dioxide (22-29) mmol/L Anion Gap (5-19) BUN (6-20) mg/dL Creatinine (0.7-1.2) mg/dL GFR Calculation (90-130) mL/min Glucose (65-115) mg/dL Calculated Osmolal ity (285-295) mOsm/k g Lactate 5.5 H* (0.5-2.2) mmol/L Calcium (8.5-10.5) mg/dL Total Bilirubin (0.15-1.2) mg/dL AST (0-40) U/L ALT (0-41) U/L Alkaline Phosphata se (40-130) IU/L Ammonia (16-60) umol/L Total Protein (6.6-8.7) g/dL Albumin (3.5-5.2) g/dL Globulin (1.3-4.6) g/dL Lipase (13-60) U/L Urine Color (Yellow) Urine Appearance (CLEAR) Urine pH (5-7) Ur Specific Gravit y (1.005-1.030) Urine Protein (Negative) Urine Glucose (UA) (Normal) Urine Ketones (Negative) Urine Blood (Negative) Urine Nitrate (Negative) Urine Bilirubin (Negative) Urine Urobilinogen (Negative) mg/dL Ur Leukocyte Sherri ase (Negative) Urine RBC (0-2) /hpf Urine WBC (0-5) /hpf Ur Squamous Epith Cells (0-5) /hpf Amorphous Sediment /hpf Urine Bacteria (NONE) /hpf Urine Mucus /hpf Acetaminophen < 5.0 L (10-30) ug/mL Hep Bs Antigen Non-reactive (Nonreactive) Hep Bs Antibody 67.0 (11.5-1000) Hep B Core Total A b Non-reactive (Nonreactive) Hepatitis C Antibo dy Reactive H (Nonreactive) 04/10/21 04/10/21 Range/Units 18:00 18:00 WBC (4.0-10.0) 10^3/ uL RBC (4.1-5.3) 10^6/u L Hgb (11.7-16.6) g/dL Hct (42.0-52.0) % MCV (80-94) fL MCH (28.0-34.0) pg MCHC (30.0-36.0) g/dL RDW (12.1-15.1) % Plt Count (130-400) 10^3/c mm MPV (7.4-10.4) fL Neut % (Auto) % Lymph % (Auto) % [place] % (Auto) % Eos % (Auto) % Baso % (Auto) % Neut # (Auto) (1.8-7.7) 10^3/u L Lymph # (Auto) (0.8-4.8) 10^3/u L [place] # (Auto) (0.2-0.9) 10^3/u L Eos # (Auto) (0.0-0.8) 10^3/u L Baso # (Auto) (0.0-0.1) 10^3/u L Nucleated RBC % (a uto) % Nucleated RBCs # /100WBC PT 32.50 H (12.1-14.9) SECO NDS INR 3.10 H (0.8-1.2) APTT 42.5 H (23.9-36.7) SECO NDS Sodium (136-145) mmol/L Potassium (3.5-5.1) mmol/L Chloride (98-107) mmol/L Carbon Dioxide (22-29) mmol/L Anion Gap (5-19) BUN (6-20) mg/dL Creatinine (0.7-1.2) mg/dL GFR Calculation (90-130) mL/min Glucose (65-115) mg/dL Calculated Osmolal ity (285-295) mOsm/k g Lactate (0.5-2.2) mmol/L Calcium (8.5-10.5) mg/dL Total Bilirubin (0.15-1.2) mg/dL AST (0-40) U/L ALT (0-41) U/L Alkaline Phosphata se (40-130) IU/L Ammonia 34 (16-60) umol/L Total Protein (6.6-8.7) g/dL Albumin (3.5-5.2) g/dL Globulin (1.3-4.6) g/dL Lipase (13-60) U/L Urine Color (Yellow) Urine Appearance (CLEAR) Urine pH (5-7) Ur Specific Gravit y (1.005-1.030) Urine Protein (Negative) Urine Glucose (UA) (Normal) Urine Ketones (Negative) Urine Blood (Negative) Urine Nitrate (Negative) Urine Bilirubin (Negative) Urine Urobilinogen (Negative) mg/dL Ur Leukocyte Sherri ase (Negative) Urine RBC (0-2) /hpf Urine WBC (0-5) /hpf Ur Squamous Epith Cells (0-5) /hpf Amorphous Sediment /hpf Urine Bacteria (NONE) /hpf Urine Mucus /hpf Acetaminophen (10-30) ug/mL Hep Bs Antigen (Nonreactive) Hep Bs Antibody (11.5-1000) Hep B Core Total A b (Nonreactive) Hepatitis C Antibo dy (Nonreactive) Imaging Data^: CT Abd/Pel: Attestation: I personally reviewed and interpreted this imaging study as follows: Radiologist's impression: [address] [address] [address] Scan Report Signed Patient: Cecil Nelson Unit #: [id number] : 1990 Age/Sex: 30 / M ADM Date: 04/10/21 Loc: ER Room/Bed: Attending Dr: Ordering Provider/Ordering MD: Mehdi Wilson DO Date of Service: 04/10/21 Procedure(s): CT abdomen pelvis w con* [id number] Accession Number(s): [id number] Report Number: [id number] PROCEDURE INFORMATION: Exam: CT Abdomen And Pelvis With Contrast Exam date and time: 04/10/2021 5:56 PM Age: 30 years old Clinical indication: Nausea and vomiting and other: Diarrhea; Abdominal pain; Generalized; Additional info: Abd pain x 3 days TECHNIQUE: Imaging protocol: Computed tomography of the abdomen and pelvis with contrast. Radiation optimization: All CT scans at this facility use at least one of these dose optimization techniques: automated exposure control; mA and/or kV adjustment per patient size (includes targeted exams where dose is matched to clinical indication); or iterative reconstruction. Contrast material: OMNI 300; Contrast volume: 95 ml; Contrast route: INTRAVENOUS (IV); COMPARISON: No relevant prior studies available. RADIATION DOSE METRICS: Total DLP (mGy-cm): 1321.72 FINDINGS: Lungs: In right middle lobe airspace consolidation. Liver: Normal. No mass. Gallbladder and bile ducts: Thick-walled appearance of the gallbladder. Wall thickness at least 10 mm in the fundus. There is increased mucosal enhancement. No dilation of the biliary system. Pancreas: Normal. No ductal dilation. Spleen: Normal. No splenomegaly. Adrenal glands: Normal. No mass. Kidneys and ureters: Normal. No hydronephrosis. Stomach and bowel: See Gallbladder and bile ducts finding. Appendix: No evidence of appendicitis. Intraperitoneal space: Unremarkable. No free air. No significant fluid collection. Vasculature: Unremarkable. No abdominal aortic aneurysm. Lymph nodes: Unremarkable. No enlarged lymph nodes. Urinary bladder: Unremarkable as visualized. Reproductive: Unremarkable as visualized. Bones/joints: Unremarkable. No acute fracture. Soft tissues: Unremarkable. CT/CT abdomen pelvis w con* [id number] IMPRESSION: 1. Right middle lobe pneumonia. 2. Nonspecific thick-walled appearance of the gallbladder. Recommend right upper quadrant ultrasound correlation and correlation for specific patient's symptoms. Acute cholecystitis not excluded. Critical Care Time Critical Care Time: Critical Care Time: Yes Total Critical Care Time: 36 Attestation: This case had a high probability of a clinically significant, sudden, or life threatening deterioration of this patient's condition which required my full and direct attention, intervention and personal management. Discharge Plan Discharge Patient Disposition: Xfer Short-Term Hosp Clinical Impression: Acute alcoholic hepatitis Acute liver failure Qualifiers: Hepatic coma status: without hepatic coma Qualified Code(s): K72.00 - Acute and subacute hepatic failure without coma Pneumonia Qualifiers: Pneumonia type: due to unspecified organism Laterality: right Lung location: middle lobe of lung Qualified Code(s): J18.9 - Pneumonia, unspecified organism Condition: Stable Coding Level of Care Code ED [employer] Supervisor for Chg Fwd Exam Comprehensive
[2021-04-10 17:59] LABS: Mucus Urine 1+ /hpf; WBC Urine RARE /hpf (0-5)
[2021-04-10 17:59] LABS: Albumin Level 3.8 g/dL (3.5-5.2); Alkaline Phosphatase 191 IU/L (40-130); Anion Gap 21.7 (5-19); Blood Urea Nitrogen 22 mg/dL (6-20); Calcium 8.9 mg/dL (8.5-10.5); Carbon Dioxide 24 mmol/L (22-29); Chloride 84 mmol/L (98-107); Globulin 2.5 g/dL (1.3-4.6); Glomerular Filtration Rate 97.8 mL/min (90-130); Glucose 84 mg/dL (65-115); Lipase 49 U/L (13-60); Osmolality Calculated 265 mOsm/kg (285-295); Potassium 3.7 mmol/L (3.5-5.1); Sodium 126 mmol/L (136-145); Total Protein 6.3 g/dL (6.6-8.7)
[2021-04-10 18:00] LABS: Add Urine Culture? No; Amorphous Sediment Urine 1+ /hpf; Bacteria Urine 1+ /hpf
[2021-04-10 18:02] LABS: Total Bilirubin 7.7 mg/dL (0.15-1.2)
[2021-04-10 18:11] LABS: Alanine Aminotransferase 3266 U/L (0-41)
[2021-04-10] MEDS: iohexol 300 mg/mL 100 mL Btl IV (18:11)
[2021-04-10 18:13] LABS: Aspartate Amino Transferase 9207 U/L (0-40)
[2021-04-10 18:18] LABS: Partial Thromboplastin Time 42.5 SECONDS (23.9-36.7)
[2021-04-10 18:23] LABS: Ammonia 34 umol/L (16-60)
[2021-04-10] MEDS: folic acid 1 MG, multivitamin inj 10 ML, thiamine 100 MG in sodium chloride 0.9% 1,000 ML 252.8 MG IV (18:30)
[2021-04-10 18:39] VITALS: BP 135/85; PULSE 107; RESP 18; O2SAT 95
[2021-04-10 18:47] LABS: Acetaminophen < 5.0 ug/mL (10-30)
[2021-04-10 18:48] LABS: Lactate (Lactic Acid level) 5.5 mmol/L (0.5-2.2)
--- NOTE | 2021-04-10 18:54 | USR_ITS ---
PROCEDURE INFORMATION: Exam: US Abdomen, Limited; Right Upper Quadrant Exam date and time: 04/10/2021 7:15 PM Age: 30 years old Clinical indication: Abdominal pain; Additional info: Abd pain TECHNIQUE: Imaging protocol: US abdomen. Real time ultrasound with image documentation. Limited exam focused on the right upper quadrant. COMPARISON: CT abdomen pelvis w con* [id number] 04/10/2021 6:07 PM FINDINGS: Liver: Enlarged liver with increased echogenicity of the parenchyma. No focal liver mass. Smooth surface contour. Gallbladder: Gallbladder wall is thickened, estimated 4-5 mm. No definitive focal echogenic intraluminal gallstones are identified. There is some layering biliary sludge dependently. Common bile duct: Common bile duct 4-5 mm diameter. No intrahepatic biliary duct dilation. Pancreas: Visualized pancreas is unremarkable. Right kidney: Normal. No mass. No hydronephrosis. Portal venous: Patent portal vein with hepatopetal flow pattern. US/US gall bladder [id number] IMPRESSION: 1. Gallbladder wall thickening/edema and possibly a small degree pericholecystic edema. Suspicious findings for acute cholecystitis. If clinically indicated, confirmation with nuclear medicine HIDA scan recommended. 2. Enlarged liver with steatosis changes.
[2021-04-10] MEDS: piperacillin-tazobactam 3.375 GM in sodium chloride 0.9% (plus) 50 ML IV (19:03)
--- NOTE | 2021-04-10 19:23 | PC.NURSE ---
US in room
[2021-04-10 19:25] VITALS: BP 145/84; PULSE 116; RESP 18; O2SAT 95
[2021-04-10 19:31] LABS: Hepatitis B Core AB, Total Non-Reactive (Nonreactive); Hepatitis B Surface Antigen Non-Reactive (Nonreactive)
[2021-04-10] MEDS: vancomycin 1,000 MG in sodium chloride 0.9% 250 ML 250 MG IV (19:38)
[2021-04-10 20:01] LABS: Hepatitis C Virus Antibody Reactive (Nonreactive)
[2021-04-10] MEDS: morphine 4 mg/mL SDV 1 mL IVP (20:03)
[2021-04-10 20:14] VITALS: BP 133/89; PULSE 115; RESP 22; O2SAT 95
--- NOTE | 2021-04-10 20:41 | PC.NURSE ---
Report called to Shannon Klein RN at
[2021-04-10 21:53] VITALS: BP 135/81; PULSE 107; O2SAT 97
--- NOTE | 2021-04-10 21:58 | PC.NURSE ---
Patient left facility via [facility]
[2021-04-11 08:41] LABS: Hepatitis A Antibody IgM Non-Reactive (Nonreactive)
== END 2021-04-10 21:53 | disposition short-term general hospital (02) ==
PROVIDERS: Family Medicine; Emergency Provider Emergency Medicine
DX: K70.10 Alcoholic hepatitis without ascites (principal); K72.00 Acute and subacute hepatic failure without coma; J18.9 Pneumonia, unspecified organism; F17.210 Nicotine dependence, cigarettes, uncomplicated
CPT/HCPCS: 74177; 76705; 80053; 80307; 81001; 82140; 83605; 83690; 85025; 85610; 85730; 86705; 86706; 86709; 86803; 87340; 96365; 96367; 96375; 99291; J2270; J2405; J2543; J3370; J3411; J3490; J7030; J7050; Q9967

== ENCOUNTER 2021-08-16 11:21 | Inpatient (IN) | payer MEDICAID, SELFPAY ==
[2021-08-16] VITALS (15 sets, daily range): BP systolic 140–169; BP diastolic 86–116; PULSE 78–132; RESP 14–20; TEMP 36.4–37; O2SAT 90–98; BMI 25.8
--- NOTE | 2021-08-16 11:28 | ECG_ITS ---
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 Measurements Intervals [place] Rate: 121 P: 61 HI: 142 QRS: 68 QRSD: 100 T: 45 QT: 331 QTc: 471 Interpretive Statements SINUS TACHYCARDIA POSSIBLE INFERIOR MYOCARDIAL INFARCTION , PROBABLY OLD [30 ms Q WAVE IN II/aVF] ABNORMAL RHYTHM ECG Compared to ECG 03/13/2021 19:56:50 Myocardial infarct finding now present Sinus rhythm no longer present Electronically Signed On 08-16-2021 19:58:49 CDT by Luciano Alvarado M.D. [id number]
--- NOTE | 2021-08-16 11:28 | XR_ITS ---
WS: [id number] XR chest 1V portable [id number] REASON FOR EXAM: Cough FINDINGS: Motion artifact and less than optimal inspiratory effort. The heart and mediastinum are within normal limits. Prominence of the interstitial bronchovascular markings in the lung bases, most notably on the right, likely due to suboptimal inspiratory effort. No other significant pulmonary parenchymal or pleural abnormality. No significant abnormality of the bony thorax. XR/XR chest 1V portable [id number] IMPRESSION: No definite acute abnormality identified.
--- NOTE | 2021-08-16 11:32 | W.ED.GENADLT ---
HPI - General Adult General: Chief complaint: Seizure Stated complaint: SEIZURE Time Seen by Provider: 08/16/21 11:27 History of Present Illness: HPI narrative: This patient is a 31-year-old male that has a long history of alcohol abuse presents to the emergency department with seizure activity via EMS. Patient had one seizure this morning then another seizure during transport with EMS. EMS did give patient Versed 2.5 mg. Patient is seizure-free at this time and has snoring respirations. Patient significant other at the bedside states that the patient has had a long history of of heavy alcohol abuse of 1/5 of hard alcohol daily. But over the past couple of days is try to wean himself off. [facility] has been try to get an alcohol rehab facility but unsuccessful due to cost. [facility] last time he had anything to drink was probably 2 to 3 days ago. We will do medical evaluation treat as needed Onset (ago): hour(s) Associated symptoms: Deny chest pain, dyspnea, headache(s), nausea, rash, palpitations or vomiting Review of Systems General: Reports: 10 or more systems reviewed and unremarkable except in HPI and below Const: Denies: fever(s), chills, body aches or fatigue Eyes: Denies: change in vision or blurry vision ENMT: Denies: throat pain, hoarseness or mouth pain Card: Denies: chest pain, palpitations, irregular heart rhythm, edema, swelling of feet/ankles or lightheadedness Resp: Denies: dyspnea, productive cough, non-productive cough, wheezing or pain on inspiration GI: Denies: abdominal pain, nausea or vomiting : Denies: flank pain, dysuria, urinary frequency, urinary urgency or urinary hesitancy Musc: Denies: neck pain, back pain, extremity pain, extremity swelling, joint pain, joint swelling, joint redness, joint warmth or limited range of motion Skin/Breast: Denies: rash, pruritus, erythema or skin tenderness Neuro: Reports: seizure-like activity; Denies: headache(s), numbness in extremities or weakness in extremities Psych: Denies: anxiety or depression PFS ED PFSH: Medical History Major depression Social History Smoking and tobacco status: heavy tobacco smoker cigarettes Packs smoked per day: 2 Alcohol intake: current Alcohol intake frequency: 3 or more drinks per day Alcohol type: hard liquor Physical Exam Const: COMMON NORMALS: no acute distress, average body habitus, no limitations, healthy appearing and well nourished HENMT: COMMON NORMALS: normocephalic, atraumatic, hearing grossly normal bilaterally, external ears normal, EAC's normal, TM's normal bilaterally, Normal external nose present, Normal nasal mucous membranes and turbinates present, moist oral mucous membranes, oropharynx normal, dentition normal and gingiva normal HEAD & SCALP: normocephalic and atraumatic NOSE: Normal external nose present and Normal nasal mucous membranes and turbinates present EXTERNAL EAR: Yes external ears normal EXTERNAL AUDITORY CANAL: EAC's normal TYMPANIC MEMBRANE: TM's normal bilaterally Neck/C-Spine: COMMON NORMALS: full ROM, no lymphadenopathy, supple, no meningeal signs, no JVD, Thyroid normal and No carotid bruits THYROID: Thyroid normal Chest: COMMONS NORMALS: normal inspection of the chest, normal palpation of entire chest wall, normal inspection of the breasts and normal palpation of the breasts Breast/axilla inspection: Yes normal inspection of the breasts BREAST/AXILLA PALPATION: Yes normal palpation of the breasts Resp: COMMON NORMALS: normal respiratory effort, No retractions, No use of accessory muscles, clear to auscultation bilaterally and percussion normal AUSCULTATION: clear to auscultation bilaterally PERCUSSION: percussion normal Cardio: COMMON NORMALS: no JVD, regular rhythm, S1 normal heart sound present, S2 normal heart sound present, No gallops present (Cardio), No clicks present (Cardio), No murmurs present (Cardio), No rub (Cardio) and Peripheral pulses 2+ throughout RATE: tachycardic RHYTHM: regular rhythm HEART SOUNDS: S1 normal heart sound present and S2 normal heart sound present PERIPHERAL PULSES: Peripheral pulses 2+ throughout GI: COMMON NORMALS: Normal to inspection, nondistended, normoactive bowel sounds present, Soft to palpation, non-tender, No hepatosplenomegaly present, no masses and no bruits PALPATION: Yes Soft to palpation and Yes No hepatosplenomegaly present : COMMON NORMALS: Yes no CVA tenderness BLADDER/KIDNEY EXAM: Yes no CVA tenderness Back/Pelvis: COMMON NORMALS: no CVA tenderness, thoracic and lumbar spine normal to inspection, no thoracic nor lumbar tenderness, thoraco-lumbar ROM normal and straight leg raise negative bilaterally Extremity: COMMON NORMALS: normal to inspection, full ROM, capillary refill normal, no joint enlargement, no clubbing, cyanosis or edema, no calf tenderness and no pedal edema Neuro: SENSORIUM/ORIENTATION: Yes somnolent (Patient is post ictal and medicated.) MENINGEAL SIGNS: Yes no meningeal signs Course Reevaluation(s): Reevaluation #1: Patient remains seizure-free. Patient be admitted to the hospital for alcohol detox and DTs. And seizure activity. Patient's family stated understanding Time: 14:34 Consultations: Consultation #1: Patient will be admitted to Dr. Ocampo. He will see patient and write additional orders Time: 14:35 Vital Signs: Vital signs: Vital Signs Temperature 97.6 F 08/16/21 11:28 Pulse Rate 114 H 08/16/21 13:17 Respiratory Rate 18 08/16/21 13:17 Blood Pressure 145/105 08/16/21 13:17 Pulse Oximetry 93 08/16/21 13:17 MDM - General Adult MDM Narrative: Medical decision making narrative: This patient is a 31-year-old male that has a long history of alcohol abuse presents to the emergency department with seizure activity via EMS. Patient had one seizure this morning then another seizure during transport with EMS. EMS did give patient Versed 2.5 mg. Patient is seizure-free at this time and has snoring respirations. Patient significant other at the bedside states that the patient has had a long history of of heavy alcohol abuse of 1/5 of hard alcohol daily. But over the past couple of days is try to wean himself off. [facility] has been try to get an alcohol rehab facility but unsuccessful due to cost. [facility] last time he had anything to drink was probably 2 to 3 days ago. We will do medical evaluation treat as needed Patient will be admitted to the hospitalist service for alcohol DTs with seizure activity. They will see patient write additional orders. Lab Data: Labs: Lab Results 08/16/21 08/16/21 08/16/21 11:20 12:09 12:13 WBC 10.0 10^3/uL 10^3 /uL (4.0-10.0) RBC 4.60 10^6/uL 10^6 /uL (4.1-5.3) Hgb 15.6 g/dL g/dL (11.7-16.6) Hct 46.4 % % (42.0-52.0) MCV 100.9 fl H fl (80-94) MCH 33.9 pg pg (28.0-34.0) MCHC 33.6 g/dL g/dL (30.0-36.0) RDW 13.3 % % (12.1-15.1) Plt Count 304 10^3/cmm 10^3 /cmm (130-400) MPV 10.6 fL H fL (7.4-10.4) Neut % (Auto) 86.7 % % Lymph % (Auto) 5.5 % % Bullock % (Auto) 5.6 % % Eos % (Auto) 0.1 % % Baso % (Auto) 0.6 % % Neut # (Auto) 8.65 10^3/uL H 10 ^3/uL (1.8-7.7) Lymph # (Auto) 0.6 10^3/uL L 10^ 3/uL (0.8-4.8) Bullock # (Auto) 0.6 10^3/uL 10^3/ uL (0.2-0.9) Eos # (Auto) 0.0 10^3/uL 10^3/ uL (0.0-0.8) Baso # (Auto) 0.1 10^3/uL 10^3/ uL (0.0-0.1) Nucleated RBC % (a uto) 0 % % Nucleated RBCs # 0.0 /100WBC /100W BC Sodium 143 mmol/L mmol/L (136-145) Potassium 3.2 mmol/L L mmol /L (3.5-5.1) Chloride 97 mmol/L L mmol/ L (98-107) Carbon Dioxide 18 mmol/L L mmol/ L (22-29) Anion Gap 31.2 H (5-19) BUN 5 mg/dL L mg/dL (6-20) Creatinine 0.6 mg/dL L mg/dL (0.7-1.2) GFR Calculation 155.2 mL/min H mL /min (90-130) Glucose 138 mg/dL H mg/dL (65-115) Calculated Osmolal ity 295 mOsm/kg mOsm/ kg (285-295) Calcium 9.2 mg/dL mg/dL (8.5-10.5) Magnesium 2.1 mg/dL mg/dL (1.7-2.3) Total Bilirubin 0.5 mg/dL mg/dL (0.15-1.2) AST 172 U/L H U/L (0-40) ALT 123 U/L H U/L (0-41) Alkaline Phosphata se 176 IU/L H IU/L (40-130) Total Protein 8.4 g/dL g/dL (6.6-8.7) Albumin 4.6 g/dL g/dL (3.5-5.2) Globulin 3.8 g/dL g/dL (1.3-4.6) Urine Color Urine Appearance Urine pH Ur Specific Gravit y Urine Protein Urine Glucose (UA) Urine Ketones Urine Blood Urine Nitrate Urine Bilirubin Urine Urobilinogen Ur Leukocyte Sherri ase Amorphous Sediment Salicylates < 0.3 mg/dL L mg/ dL (3-10) Acetaminophen < 5.0 ug/mL L ug/ mL (10-30) Ethyl Alcohol 14 mg/dL H mg/dL (0-10) SARS-CoV-2 Ag (Rap id) Negative (Negative) 08/16/21 13:22 WBC RBC Hgb Hct MCV MCH MCHC RDW Plt Count MPV Neut % (Auto) Lymph % (Auto) Bullock % (Auto) Eos % (Auto) Baso % (Auto) Neut # (Auto) Lymph # (Auto) Bullock # (Auto) Eos # (Auto) Baso # (Auto) Nucleated RBC % (a uto) Nucleated RBCs # Sodium Potassium Chloride Carbon Dioxide Anion Gap BUN Creatinine GFR Calculation Glucose Calculated Osmolal ity Calcium Magnesium Total Bilirubin AST ALT Alkaline Phosphata se Total Protein Albumin Globulin Urine Color Yellow (Yellow) Urine Appearance Clear (CLEAR) Urine pH 5 (5-7) Ur Specific Gravit y 1.025 (1.005-1.030) Urine Protein 1+ H (Negative) Urine Glucose (UA) Norm (Normal) Urine Ketones 1+ H (Negative) Urine Blood Trace H (Negative) Urine Nitrate Negative (Negative) Urine Bilirubin Neg (Negative) Urine Urobilinogen Norm mg/dL mg/dL (Negative) Ur Leukocyte Sherri ase Negative (Negative) Amorphous Sediment Not Reportable Salicylates Acetaminophen Ethyl Alcohol SARS-CoV-2 Ag (Rap id) Imaging Data^: CXR: Attestation: I personally reviewed and interpreted this imaging study as follows: Radiologist's impression: IMPRESSION: No definite acute abnormality identified EKG Data^: EKG 1: Attestation: I personally reviewed and interpreted this EKG as follows: EKG interpretation date: 08/16/21 EKG interpretation time: 12:03 Prior EKG tracings: not available for review Interpretation: Sinus tachycardia heart rate 121. Nonspecific EKG changes Computer generated interpretation: Chest X-Ray 08/16/21 11:28 IMPRESSION: No definite acute abnormality identified. Discharge Plan Discharge Patient Disposition: Admitted As Inpatient Clinical Impression: Witnessed seizure-like activity, Alcohol withdrawal delirium, acute, hyperactive, History of ETOH abuse Condition: Stable Prescriptions: No Action naltrexone 50 mg tablet 50 mg PO DAILY RF: 0 citalopram 20 mg tablet 10 mg PO DAILY RF: 0 Coding Level of Care Code ED Plant Sprayer for Chg Fwd Exam Comprehensive
[2021-08-16] MEDS: sodium chloride 0.9% 500 ML IV (11:43)
[2021-08-16] MEDS: ondansetron 2 mg/ML SDV 2 mL 4 MG IVP (11:43)
[2021-08-16] MEDS: LORazepam 2 mg/mL INJ 1 mL 0.5 MG IVP ×2 (11:43→11:58)
[2021-08-16 12:10] LABS: Alanine Aminotransferase 123 U/L (0-41); Albumin Level 4.6 g/dL (3.5-5.2); Alcohol Level 14 mg/dL (0-10); Alkaline Phosphatase 176 IU/L (40-130); Anion Gap 31.2 (5-19); Aspartate Amino Transferase 172 U/L (0-40); Blood Urea Nitrogen 5 mg/dL (6-20); Calcium 9.2 mg/dL (8.5-10.5); Carbon Dioxide 18 mmol/L (22-29); Chloride 97 mmol/L (98-107); Globulin 3.8 g/dL (1.3-4.6); Glomerular Filtration Rate 155.2 mL/min (90-130); Glucose 138 mg/dL (65-115); Magnesium 2.1 mg/dL (1.7-2.3); Osmolality Calculated 295 mOsm/kg (285-295); Potassium 3.2 mmol/L (3.5-5.1); Sodium 143 mmol/L (136-145); Total Bilirubin 0.5 mg/dL (0.15-1.2); Total Protein 8.4 g/dL (6.6-8.7)
[2021-08-16 12:13] LABS: Acetaminophen < 5.0 ug/mL (10-30); Salicylate < 0.3 mg/dL (3-10)
--- NOTE | 2021-08-16 12:16 | PC.NURSE ---
Doctor is notified unable to obtain UA at this time, patient is combative when stimulated. Bed rails are padded.
[2021-08-16 12:43] LABS: Basophils # 0.1 10^3/uL (0.0-0.1); Basophils % 0.6 %; Eosinophils % 0.1 %; Hematocrit 46.4 % (42.0-52.0); Hemoglobin 15.6 g/dL (11.7-16.6); Lymphocytes # 0.6 10^3/uL (0.8-4.8); Lymphocytes % 5.5 %; Mean Corpuscular HGB Conc 33.6 g/dL (30.0-36.0); Mean Corpuscular Hemoglobin 33.9 pg (28.0-34.0); Mean Corpuscular Volume 100.9 fl (80-94); Mean Platelet Volume 10.6 fL (7.4-10.4); Monocytes # 0.6 10^3/uL (0.2-0.9); Monocytes % 5.6 %; Neutrophils # 8.65 10^3/uL (1.8-7.7); Neutrophils % 86.7 %; Nucleated Red Blood Cells % 0 %; Platelet Count 304 10^3/cmm (130-400); Red Cell Distribution Width 13.3 % (12.1-15.1)
[2021-08-16] MEDS: folic acid 1 MG, multivitamin inj 10 ML, thiamine 100 MG in sodium chloride 0.9% 1,000 ML 252.8 MG IV (13:31)
[2021-08-16 13:45] LABS: SARS Covid-2 Antigen Negative (Negative)
[2021-08-16 14:30] LABS: Add Urine Microscopic? YES; Bilirubin Urine Neg (Negative); Blood Urine Trace (Negative); Glucose Urine UA Norm (Normal); Ketones Urine 1+ (Negative); Leukocyte Esterase Urine Negative (Negative); Nitrate Urine Negative (Negative); Protein Urine 1+ (Negative); Specific Gravity, Urine 1.025 (1.005-1.030); Urine Appearance Clear (CLEAR); Urine Color Yellow (Yellow); Urobilinogen Urine Norm (Negative); pH Urine 5 (5-7)
[2021-08-16 14:38] LABS: Amphetamines Screen Urine Negative (Negative); Barbiturates Screen Urine Negative (Negative); Benzodiazepines Screen Urine Negative (Negative); Cocaine Screen Urine Negative (Negative); Opiate Screen Urine Positive (Negative); PCP Screen Urine Negative (Negative); THC Screen Urine Negative (Negative)
--- NOTE | 2021-08-16 15:06 | PC.NURSE ---
Patient is alert to person, place and time. He does not remember event. Awake and talking with staff and spouse.
--- NOTE | 2021-08-16 15:08 | PC.NURSE ---
900ml output using urinal.
[2021-08-16 15:12] LABS: Mucus Urine 2+ /hpf; Squamous Epithelial Cell Urine RARE /hpf (0-5); WBC Urine RARE /hpf (0-5)
[2021-08-16 15:13] LABS: Fine Granular Casts Urine 0-4 /lpf
--- NOTE | 2021-08-16 16:22 | PM.HP ---
Providers/Chief Complaint Admitting Physician: Artis Ocampo MD Chief Complaint: SEIZURE History of Present Illness Cecil Nelson is a 31 year old male with past medical history of alcohol abuse, drinks 1 pint Rum daily, last drink yesterday morning, he has been drinking for the last 2 years, was brought by the EMS after he was having seizure At home.1st seizure was earlier this morning, followed by a second seizure in route to the hospital, EMS gave 2.5 mg Versed while he was being transported to the hospital. Patient was sleepy when I examined him, some of the information's have been gathered by ED chart review.Patient is a heavy drinker But over the past couple of days is trying to wean himself off. He has been try to get an alcohol rehab facility but unsuccessful due to cost. Upon arrival in the ER he was not having any seizure-like episodes. He was worked up for above-mentioned complaint in the ER: Pertinent imaging studies: X-ray chest: Normal Pertinent labs: WBC:10T, H&H:15.6/46.4, platelet count:304, serum sodium:143, serum potassium: 3.2, BUN / serum creatinine: 5/0.6 AST: 172 ALT : 123 ALP: 176 , blood alcohol level:14 Rapid Covid antigen: Negative Review of Systems Const: Denies: fever(s), chills, body aches, change in appetite or diaphoresis Card: Denies: palpitations, edema, swelling of feet/ankles, dyspnea on exertion, orthopnea or leg pain with exertion Resp: Denies: dyspnea, productive cough, wheezing or pain on inspiration GI: Denies: abdominal pain, diarrhea or constipation : Denies: flank pain or difficulty urinating Musc: Denies: back pain, extremity pain or extremity swelling Neuro: Denies: headache(s), difficulty walking or confusion Medications/Allergies Home Medications Medication Instructions Recorded Confirmed Last Taken Type citalopram 10 mg PO DAILY 04/10/21 04/10/21 Unknown History naltrexone 50 mg PO DAILY 04/10/21 04/10/21 Unknown History Allergies Allergy/AdvReac Type Severity Reaction Status Date / Time No Known Allergies Allergy Verified 04/10/21 17:26 PFSH Acute PFSH: Medical History Major depression Social History Smoking and tobacco status: heavy tobacco smoker cigarettes Packs smoked per day: 2 Alcohol intake: current Alcohol intake frequency: 3 or more drinks per day Alcohol type: hard liquor Vitals/I&O/Wt Last Vital Signs Temp 98.1 F 08/16/21 15:31 Pulse 95 08/16/21 15:31 Resp 18 08/16/21 15:31 BP 158/98 08/16/21 15:31 Pulse Ox 98 08/16/21 15:31 08/16/21 08/16/21 08/16/21 06:59 14:59 22:59 Intake Total 500 / 500 Balance 500 / 500 Weight last 48 hrs Weight 81.647 kg Physical Exam Narrative: EXAM NARRATIVE: Alert and awake HENMT: COMMON NORMALS: normocephalic and atraumatic HEAD & SCALP: normocephalic and atraumatic Resp: COMMON NORMALS: clear to auscultation bilaterally AUSCULTATION: clear to auscultation bilaterally Cardio: COMMON NORMALS: regular rate, regular rhythm, S1 normal heart sound present, S2 normal heart sound present, No gallops present (Cardio), No murmurs present (Cardio), No rub (Cardio) and Peripheral pulses 2+ throughout RATE: regular rate RHYTHM: regular rhythm HEART SOUNDS: S1 normal heart sound present and S2 normal heart sound present PERIPHERAL PULSES: Peripheral pulses 2+ throughout GI: COMMON NORMALS: Normal to inspection, nondistended, normoactive bowel sounds present, Soft to palpation, non-tender, No hepatosplenomegaly present and no masses AUSCULTATION: Yes normoactive bowel sounds PALPATION: Yes Soft to palpation and Yes No hepatosplenomegaly present RECTAL EXAM: Yes deferred Extremity: COMMON NORMALS: no clubbing, cyanosis or edema and no pedal edema Neuro: COMMON NORMALS: patient oriented x3 Data : 08/16/21 12:09 08/16/21 11:20 A&P Assessment and plan (1) Alcohol withdrawal: Currently on CIWA protocol Aspiration precaution Seizure precaution Continue IV hydration normal saline with 20 Meq of potassium @ 100 cc/hr Thiamine 100 mg p.o. daily Folic acid 1 mg p.o. daily We will monitor him for possible DT Status: Acute (2) Seizure: Likely secondary to alcohol withdrawal. Ativan as needed for breakthrough seizures Status: Acute (3) Transaminitis: Likely secondary to alcohol abuse. Monitor CMP Status: Acute (4) Alcohol abuse with alcohol-induced disorder: Status: Acute (5) Hypokalemia: Status: Acute Additional A&P Information #Patient has history of fall couple of days back during which time likely hit his head.Currently is complaining of severe headache. We will get CT head without contrast. Tylenol as needed for headache. #History of hep C: CODE STATUS: Full code DVT prophylaxis: Lovenox 40 subcu daily Attestations Medical Necessity Statement*: Patient needs to be in hospital for management of alcohol withdrawal, seizures. Anticipated length of stay greater than 2 midnight. Coding Level of Care Code Acute Cryptologic Support Specialist for Edvin Fwgallo Exam Comprehensive Diagnoses Alcohol withdrawal F10.239 Seizure R56.9 Transaminitis R74.01 Alcohol abuse with alcohol-induced disorder F10.19 Hypokalemia E87.6
--- NOTE | 2021-08-16 16:40 | CTR_ITS ---
PROCEDURE INFORMATION: Exam: CT Head Without Contrast Exam date and time: 08/16/2021 4:40 PM Age: 31 years old Clinical indication: Pain; Headache; Additional info: H/o fall and having headache since then TECHNIQUE: Imaging protocol: Computed tomography of the head without contrast. Total images: 213 Radiation optimization: All CT scans at this facility use at least one of these dose optimization techniques: automated exposure control; mA and/or kV adjustment per patient size (includes targeted exams where dose is matched to clinical indication); or iterative reconstruction. COMPARISON: No relevant prior studies available. RADIATION DOSE METRICS: Total DLP (mGy-cm): 872.24 FINDINGS: Brain: Examination reveals multifocal right cerebral hemisphere intraparenchymal hemorrhagic contusions greatest involvement right frontal lobe. Several foci of intraparenchymal hemorrhagic clot right frontal lobe the largest clot measuring approximately 43 mm x 24 mm x 30 mm. Other smaller clots measuring 1 cm in diameter or smaller present. Moderate associated perihemorrhagic edema with focal mass effect but without visible evidence of significant midline shift. There are 3 foci of right temporal lobe intraparenchymal hemorrhagic contusions the largest clot measuring 32 mm x 11 mm x 20 mm. Second largest clot located posterior right temporal lobe measures 21 mm x 10 mm x 19 mm. Third clot measures approximately 1 cm in maximum diameter. Surrounding mild perihemorrhagic edema. Mild focal mass effect. No midline shift. No generalized cerebral edema. No visible subdural, epidural, or subarachnoid hemorrhage. No visible involvement of the left cerebral hemisphere or posterior fossa. Cerebral ventricles: No ventriculomegaly. Paranasal sinuses: Visualized sinuses are unremarkable. No fluid levels. Mastoid air cells: Visualized mastoid air cells are well aerated. Bones/joints: Unremarkable. No acute fracture. Soft tissues: Unremarkable. CT/CT head wo con* [id number] IMPRESSION: Examination reveals multifocal right cerebral hemisphere intraparenchymal hemorrhagic contusions involving the right frontal and temporal lobes, as detailed in text above, with focal mass effect and edema but without midline shift. Please review details in text above. Radiation Dose CTDIVOL = (mGy): DLP = 872.24 (mGy-cm)
[2021-08-16] MEDS: acetaminophen 325 mg Tablet 650 MG PO (16:42)
[2021-08-16] MEDS: famotidine 20 mg/2 mL INJ IVP (18:18)
[2021-08-16] MEDS: ketorolac 30 mg/mL INJ 15 MG IVP (18:22)
[2021-08-16] MEDS: amlodipine 5 mg Tablet PO (18:23)
[2021-08-16] MEDS: labetalol 5 mg/mL SDV 20mL 10 MG IVP (18:49)
[2021-08-16] MEDS: nicardipine 20 MG/200 ML PREMIX 50 MG IV (20:01)
--- NOTE | 2021-08-16 21:12 | PC.NURSE ---
Transfer Note Patient transferred to EMS for transfer to [facility] from ICU via stretcher at 2030. Handoff given to [facility] and Dena Morillo RN at [facility]. supervisor conditioning yard notified. notified.
--- NOTE | 2021-08-16 21:24 | PC.NURSE ---
No belongings at patients bedside.
--- NOTE | 2021-08-18 14:15 | PC.SOCIAL ---
follow up call made, patient transferred to [facility] floor 4E. per Paty, patients nurse. patient is doing good, he has orders to transfer to med surg as soon as a bed is available.
--- NOTE | 2021-08-18 14:53 | PC.RESP ---
SMOKING CESSATION INFORMATION SENT TO PATIENT.
== END 2021-08-16 20:30 | disposition short-term general hospital (02) | DRG 83 ==
LOC: ER 14:44 → ICU 14:51
PROVIDERS: Admitting Provider Internal Medicine; Emergency Provider Emergency Medicine; Visit Provider Internal Medicine
DX: S06.349A Traumatic hemorrhage of right cerebrum with loss of consciousness of unspecified duration, initial encounter (principal); F10.131 Alcohol abuse with withdrawal delirium; W19.XXXA Unspecified fall, initial encounter; R56.9 Unspecified convulsions; R74.01 Elevation of levels of liver transaminase levels; E87.6 Hypokalemia; F17.210 Nicotine dependence, cigarettes, uncomplicated; F32.A Depression, unspecified; Z86.19 Personal history of other infectious and parasitic diseases
CPT/HCPCS: 70450; 71045; 80053; 80306; 80307; 81001; 83735; 85025; 87426; 93005; 96361; 96372; 96374; 96375; 96376; 99285; J1885; J1953; J2060; J2405; J2930; J3411; J3490; J7030; J7040

== ENCOUNTER 2021-09-03 19:35 | Emergency (ER) | payer MEDICAID, SELFPAY ==
[2021-09-03 19:41] VITALS: BP 151/96; PULSE 100; RESP 18; TEMP 36.4; O2SAT 94; BMI 25.1
--- NOTE | 2021-09-03 19:52 | W.ED.ALCOHOL ---
HPI - Alcohol General: Chief Complaint: Alcohol Stated Complaint: ETOH, DENIES SI Time Seen by Provider: 09/03/21 19:47 Source: patient Mode of arrival: other Limitations: no limitations History of Present Illness: HPI narrative: 31-year-old male came in with police for alcoholism. Patient's is here and history from him and her. She states that he has been a heavy drinker for years he actively wants to get out. He has been try to get in [facility] [place] states he needs also psychiatric follow-up because his drinking causes some depression. She states that when he gets extremely intoxicated he does make suicidal statements but is not actually suicidal she does not believe he is a threat to himself he adamantly denies being suicidal. He states he just needs help trying to stop drinking. Denies any worsening improving factors. Associated symptoms: Deny abdominal pain, depression, nausea or vomiting Review of Systems Const: Denies: fever(s), chills, body aches or change in appetite Eyes: Denies: blurry vision or eye discomfort ENMT: Denies: throat pain or dental pain Card: Denies: chest pain Resp: Denies: dyspnea GI: Denies: abdominal pain, nausea, vomiting or diarrhea : Denies: dysuria Musc: Denies: neck pain or back pain Skin/Breast: Denies: rash Neuro: Denies: headache(s) Psych: Denies: depression Bib/Lymph: Denies: easy bruising All/Imm: Denies: urticaria PFSH ED PFSH: Medical History Major depression Social History Smoking and tobacco status: heavy tobacco smoker cigarettes Packs smoked per day: 2 Alcohol intake: current Alcohol intake frequency: 3 or more drinks per day Alcohol type: hard liquor Physical Exam Const: COMMON NORMALS: no acute distress, patient oriented x3 and healthy appearing GENERAL APPEARANCE: odor of alcohol detected HENMT: COMMON NORMALS: normocephalic and atraumatic HEAD & SCALP: normocephalic and atraumatic Eye: COMMON NORMALS: Equal, round and reactive pupils present and EOMs intact bilaterally PUPIL: Yes Equal, round and reactive pupils present Neck/C-Spine: COMMON NORMALS: full ROM and supple Chest: COMMONS NORMALS: normal inspection of the chest and normal palpation of entire chest wall Resp: COMMON NORMALS: normal respiratory effort, No retractions, No use of accessory muscles and clear to auscultation bilaterally AUSCULTATION: clear to auscultation bilaterally Cardio: COMMON NORMALS: regular rate, regular rhythm and No murmurs present (Cardio) RATE: regular rate RHYTHM: regular rhythm GI: COMMON NORMALS: Normal to inspection, nondistended, normoactive bowel sounds present, Soft to palpation, non-tender and no masses PALPATION: Yes Soft to palpation Extremity: COMMON NORMALS: normal to inspection and full ROM Neuro: COMMON NORMALS: patient oriented x3, moves all extremities and no focal motor deficits Psych: COMMON NORMALS: mental status grossly normal, Normal thought process present and cooperative THOUGHT PROCESS: Normal thought process present Skin: COMMON NORMALS: no rashes or lesions noted and no wounds GENERAL SKIN EXAM: no rashes or lesions noted Course Vital Signs: Vital signs: Vital Signs Temperature 97.6 F 09/03/21 19:41 Pulse Rate 100 09/03/21 19:41 Respiratory Rate 18 09/03/21 20:16 Blood Pressure 151/96 09/03/21 19:41 Pulse Oximetry 94 09/03/21 19:41 MDM - Alcohol MDM Narrative: Medical decision making narrative: Patient presents with alcoholism with acute alcohol intoxication he adamantly denies any suicidality patient was evaluated by Dr. Ferguson who also agrees he is not a threat to himself or others will put an order in for case management for alcohol rehab and for [facility] follow-up he is stable for discharge and return if worsening he understands agrees to plan. Discharge Plan Discharge Patient Disposition: Home Clinical Impression: Alcoholic intoxication, Depression Condition: Stable Prescriptions: No Action naltrexone 50 mg tablet 50 mg PO DAILY RF: 0 citalopram 20 mg tablet 10 mg PO DAILY RF: 0 Discharge Orders: Discharge ED (Routine); Ordered 09/03/21 Ordered By: Paulina Johnson Discharge Diet: Advance as tolerated Discharge Activity: Resume usual activity Patient Instructions: Alcohol Intoxication (ED) Coding Level of Care Code ED Marketing Sales Supervisor for Edvin Fwd Exam Comprehensive
[2021-09-03 20:16] VITALS: RESP 18
--- NOTE | 2021-09-06 10:17 | DCPLANNER ---
product management manager had message to speak with patient about services at [facility]. product management manager called phone number [phone], spoke with patients , informed her that business case analyst is not able to schedule a follow up appointment for patient if he is not a client at [facility]. product management manager informed the that patient will need to fill out the initial paperwork and turn it in. When the initial paperwork is turned in, then the clinic will call patient to schedule a initial assessment, after that assessment, then patient can have all of the services that are offered at [facility]. product management manager will mail the initial paperwork to patient.
== END 2021-09-03 20:17 | disposition home or self-care (01) ==
PROVIDERS: Emergency Provider Emergency Medicine
DX: F10.129 Alcohol abuse with intoxication, unspecified (principal); F32.A Depression, unspecified; F17.210 Nicotine dependence, cigarettes, uncomplicated
CPT/HCPCS: 99281